=== PATIENT | male | born 1935 | race Caucasian/White ===

== ENCOUNTER 2016-06-07 11:12 | Emergency (ER) | payer MEDICARE ==
[2016-06-07 12:26] LABS: ALBUMIN 4.3 g/dL (3.5-5.0); ALKALINE PHOSPHATASE 91 U/L (38-126); ALT 25 U/L (21-72); AST 33 U/L (17-59); BILIRUBIN, DIRECT 0.5 mg/dL (0.0-0.4); BILIRUBIN, TOTAL 0.9 mg/dL (0.2-1.3); BLOOD UREA NITROGEN 73 mg/dL (9-20); CALCIUM 9.4 mg/dL (8.4-10.2); CHLORIDE 100 mmol/L (98-107); LIPASE 167 U/L (23-300); POTASSIUM 4.5 mmol/L (3.5-5.1); SODIUM 139 mmol/L (137-145); TOTAL PROTEIN 8.9 g/dL (6.3-8.2)
[2016-06-07 12:27] LABS: BASOPHILS 0.2 % (0.0-2.0); EOSINOPHILS 0.1 % (0.0-6.0); HEMATOCRIT 42.3 % (42.0-54.0); HEMOGLOBIN 13.8 g/dL (14.0-18.0); LYMPHOCYTES 18.3 % (20.0-40.0); LYMPHOCYTES# 2.1 X 10^3uL (0.8-3.8); MEAN CELL VOLUME 87.6 fL (80.0-100.0); MEAN CORPUS. HGB CONCENTRATION 32.5 g/dL (32.0-36.0); MEAN CORPUSCULAR HEMOGLOBIN 28.5 pg (29.0-35.0); MEAN PLATELET VOLUME 8.6 fL (7.4-10.4); MONOCYTES 4.7 % (2.0-10.0); MONOCYTES# 0.5 X 10^3uL (0.2-1.0); NEUTROPHILS 76.7 % (54.0-75.0); NEUTROPHILS# 8.7 X 10^3uL (2.6-6.7); PLATELET COUNT 386 X 10^3uL (130-440); RED BLOOD COUNT 4.83 X 10^6uL (4.20-6.10); WHITE BLOOD COUNT 11.3 X 10^3uL (3.9-10.7)
[2016-06-07 12:30] LABS: RED CELL DISTRIBUTION WIDTH 16.4 % (11.5-14.5)
[2016-06-07 12:32] LABS: GLUCOSE 207 mg/dL (70-100)
[2016-06-07 12:35] LABS: CREATININE 8.2 mg/dL (0.7-1.3)
[2016-06-07] MEDS ORDERED: ONDANSETRON HCL 4 MG/2 ML VIAL ONE (12:37)
[2016-06-07] MEDS ORDERED: NORMAL SALINE IV SCH ×2 (13:00→13:10)
[2016-06-07] MEDS ORDERED: PANTOPRAZOLE IV SCH ×2 (13:00→13:10)
[2016-06-07] MEDS ORDERED: CEFTRIAXONE SODIUM 1,000 MG/10 ML VIAL ONE (13:18)
[2016-06-07] MEDS ORDERED: NORMAL SALINE MINI-BAG+ 100 ML IV ONE (13:19)
--- NOTE | 2016-06-07 14:09 | RADIOLOGY REPORT ---
A limited single portable view of the chest is compared with a prior film dated 05/20/2013. The heart, vessels and lungs are stable and unremarkable. No infiltrate, fluid or pneumothorax is seen. IMPRESSION: Unremarkable limited inspiration single portable view of the chest. MTDD
--- NOTE | 2016-06-07 15:12 | ER NURSING DOCUMENTATION ---
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 tg Transition of care: patient was not received from another setting of care. 11:23 Acuity: JAYDEN 2 tg 11:23 Method Of Arrival: Private Vehicle tg Triage Assessment: 11:00 General: Appears slender, unkempt, Behavior is cooperative, flat, quiet, Smells of tg urine, vomit. Pain: Denies pain. Neuro: Level of Consciousness is awake, alert, Gait is unsteady. Cardiovascular: Capillary refill < 3 seconds. Cardiovascular: Rhythm is sinus rhythm. Respiratory: Respiratory effort is even, unlabored. GI: Reports vomiting, Denies nausea, pain. : Lopez bag has some very dark, thick urine. Pt's grand-daughter reports that urine was "normal" yesterday evening. Derm: Skin is dry, Skin is pale, Skin temperature is warm. Historical: - Allergies: No known drug Allergies; - Home Meds: 1. 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 - Ebola Screening: : Patient negative for fever greater than or equal to 101.5 degrees Fahrenheit, and additional compatible Ebola Virus Disease symptoms. Patient denies exposure to infectious person. Patient denies travel to an Ebola-affected area in the 21 days before illness onset. No symptoms or risks identified at this time. . - Immunization history: Unable to Obtain. - Social history: Smoking status: Patient states was never smoker of tobacco. - History obtained from: granddaughter. Screenin:57 Infectious Disease Risk Unable to Obtain. Abuse screen: Unable to Obtain. Nutritional tg screening: No deficits noted. Assessment: 12:53 Reassessment: Pt placed in trendelenburg position by Dr. Lopez. tg 12:56 Pain: Denies pain. GI: Abdomen is distended, Denies nausea. : suprapubic catheter in tg place to gravity drainage. 13:42 Reassessment: Family has left for now. Both side rails up, call light in reach. Pt's tg door open and visible from nurses. station. . 14:27 Reassessment: Transfer delay due to ambulance shortage. Expect transport ambulance to arrive at [facility] 1530.. Vital Signs: 11:24 BP 92 / 64; Pulse 105; Pulse Ox 92% on R/A; tg 12:54 BP 94 / 51; Pulse 80; Resp 18; Temp 98.2(TE); Pulse Ox 97% on 2 lpm NC; Weight 58.97 kg tg (R); Height 5 ft. 6 in. (167.64 cm) (R); Pain 0/10; 13:50 BP 102 / 60; Pulse 83; Resp 19; Pulse Ox 94% on 2 lpm NC; tg 15:01 BP 100 / 60; Pulse 74; Resp 16; Pulse Ox 96% on 2 lpm NC; tg 12:54 Body Mass Index 20.98 (58.97 kg, 167.64 cm) tg Orange Coma Score: 13:11 Eye Response: spontaneous(4). Verbal Response: confused(4). Motor Response: obeys cd commands(6). Total: 14. ED Course: 11:13 Patient arrived in ED. ds 11:13 Barrie Sandoval MD is Private Physician. ds 11:23 Elan Baird, RN is Primary Nurse. tg 11:24 Triage completed. tg 11:30 Inserted peripheral IV: 20 gauge in left forearm. Inserted peripheral IV: 18 gauge in tg right forearm. Oxygen Oxygen administration via nasal cannula @ 2L/min. 11:46 Evin Lopez MD is Attending Physician. cd 12:41 EKG done. (by ED staff). Reviewed by vEin Lopez MD. tg 12:51 Port Xray Completed. ms 12:53 Valuables Remains with patient Placed in gown. Bed in low position. Call light in tg reach. Side rails up X 1. Adult w/ patient. groundwater monitoring technician on. Pulse ox on. Diet: Patient is NPO. 13:43 Verbal reassurance given. Warm blanket given. Pillow given. Vomit cleaned from mustach tg and ivan from his vomiting episode [employer]. 13:45 suprapubic catheter flushed with sterile technique. Thick sludge in az line, but tg flushes well. No urinary output yet. Leg bag and tubing replaced. 14:28 Repositioned patient. Linen changed. Pt's justin-area cleaned with mild soap. Moisturizer tg applied. Pt's skin is very dry/flaky all over. Administered Medications: 11:47 CANCELLED (Physician Discretion): NS 0.9% 2000 ml IV at bolus once cd 12:14 Drug: NS 0.9% 500 ml; Route: IV; Rate: bolus; Site: left forearm; Delivery: Pump; tg 12:51 Follow up: IV Status: Completed infusion; IV Intake: 500ml tg 12:39 Drug: Zofran 4 mg; Route: IVP; Infused Over: 2 mins; Site: left forearm; tg 13:49 Follow up: Response: No adverse reaction tg 12:51 Drug: NS 0.9% 1000 ml; Route: IV; Rate: 150 ml/hr; Site: left forearm; Delivery: Pump; tg 15:10 Follow up: IV Status: Infusing continued upon transfer; IV Intake: 300ml tg 12:52 Drug: Protonix 80 mg; Route: IVPB; Site: left forearm; Delivery: Pump; tg 13:22 Follow up: IV Status: Completed infusion; IV Intake: 100ml tg 13:10 Drug: NS 0.9% 100 ml, Rocephin 1 grams; Route: IVPB; Rate: 200 ml/hr; Site: right tg forearm; Delivery: Pump; 13:49 Follow up: IV Status: Completed infusion; IV Intake: 100ml tg 13:23 Drug: NS 0.9% 500 ml; Route: IV; Rate: bolus; Site: right forearm; tg 13:49 Follow up: IV Status: Completed infusion; IV Intake: 500ml tg 13:49 Drug: Protonix 8 mg/hr; Route: IV; Rate: calculated rate; Site: right forearm; tg Delivery: Pump; 14:50 Follow up: IV Status: Infusing continued upon transfer; IV Intake: 20ml tg Intake: 12:51 IV: 500ml; Total: 500ml. tg 13:22 IV: 100ml; Total: 600ml. tg 13:49 IV: 500ml; Total: 1100ml. tg 13:49 IV: 100ml; Total: 1200ml. tg 14:50 IV: 20ml; Total: 1220ml. tg 15:10 IV: 300ml; Total: 1520ml. tg Outcome: 13:27 ER care complete, transfer ordered by . li 15:01 Transferred: Patient will be transferred to: [facility]. Facility tg Acceptance Time: June 07, 2016 at 13:00 Patient's face sheet was faxed to accepting facility. Face Sheet included patient's name, address, age, gender, contact information and insurance information. Patient will be transported by: [facility] ground. Nurse and Physician Charting and Notes were sent to Accepting Facility. All tests and/or procedures with results, if applicable, were sent to accepting facility. 15:01 Condition: improved 15:01 Discharge Assessment: Patient awake and alert. 15:01 Discharge instructions given to patient, family, Instructed on need for transfer 15:10 Transferred: Report called to: EDELMIRA Rhodes tg 15:11 Patient left the ED. tg Signatures: Elan Baird RN RN tg Srot, Jenniffer, Reg Reg Evin Melendez MD MD cd Strickland, Mary ms
--- NOTE | 2016-06-07 15:12 | ER PHYSICIAN DOCUMENTATION ---
Physician Documentation [facility] Name:Abhishek Jimenez Age:80 yrs Sex:Male :1935 Arrival Date:06/07/2016 Time:11:12 Bed3 Private MD:Barrie Sandoval ED, Chris Disposition: 06/07/16 13:27 Transfer ordered to [facility]. Diagnosis are Acute Renal/Kidney Failure, Nontraumatic, Dehydration - : severe, Urosepsis - : Rule out, Metabolic Acidosis, Do Not Resuscitate Status. - Reason for transfer: Higher level of care. - Accepting physician is Dr. Agustin Conti, [facility] Hospitalist. - Condition is Serious. - Problem is new. - Symptoms have improved. COBRA Form completed? Yes Transfer - Mode of Transportation Ambulance HPI: 06/07 11:20 This 80 yrs old Male presents to ER via Private Vehicle with complaints of cd Vomiting. 11:20 The patient presents to the emergency department with nausea, that is moderate, with cd vomiting, 1 times today, described as undigested food, and a small amount of dark blood, without any complaints of abdominal pain. Onset: The symptom(s)/episode began/occurred yesterday. Possible causes: unknown, Patient has had altered mental status, awake and alert but more disoriented over the past few days. The symptoms are aggravated by nothing. The symptoms are alleviated by nothing. Associated signs and symptoms: Pertinent positives: anorexia, GI bleeding, nausea, vomiting, foul smelling urine from his suprapubic catheter (which is changed every 4 weeks; His last catheter change was 3 weeks ago; The cath bag has foul, cloudy urine with clumps.) The family denies high fever or chills. He has been drinking fluids, but eating poorly over the past few days.. Severity of symptoms: At their worst the symptoms were moderate in the emergency department the symptoms are unchanged. The patient has experienced a previous episode, approximately 4 months ago, when he had Urosepsis and Renal Failure. Family members state he is a DNR patient.. Historical: - Allergies: No known drug Allergies; - Home Meds: 1. 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 - Ebola Screening: : Patient negative for fever greater than or equal to 101.5 degrees Fahrenheit, and additional compatible Ebola Virus Disease symptoms. Patient denies exposure to infectious person. Patient denies travel to an Ebola-affected area in the 21 days before illness onset. No symptoms or risks identified at this time. . - Immunization history: Unable to Obtain. - Social history: Smoking status: Patient states was never smoker of tobacco. - History obtained from: granddaughter. ROS: 13:11 ENT: Negative for injury, pain, epistaxis and discharge. cd Neck: Negative for injury, pain, stiffness and swelling. Cardiovascular: Negative for chest pain, palpitations, edema and pleuritic pain. Respiratory: Negative for shortness of breath, dyspnea on exertion, cough, sputum production, wheezing, hemoptysis and pleuritic chest pain. Back: Negative for injury, pain or muscle spasms. MS/Extremity: Negative for injury, deformity, edema, calf tenderness, pain or coldness. 13:11 Skin: Negative for injury, rash, itching and discoloration. cd 13:11 Constitutional: Positive for malaise, poor PO intake, Negative for chills, fever. 13:11 Abdomen/GI: Positive for nausea, vomiting, anorexia, hematemesis, Negative for abdominal pain, diarrhea, abdominal distension, black/tarry stool, rectal bleeding, bowel incontinence. 13:11 Neuro: Positive for altered mental status, weakness, Negative for loss of consciousness, syncope. 13:11 All other systems are negative. Exam: Head/Face: Normocephalic, atraumatic. Eyes: Pupils equal round and reactive to light, extra-ocular motions intact. Lids and lashes normal. Conjunctiva and sclera are non-icteric and not injected. Cornea within normal limits. Periorbital areas with no swelling, redness, or edema. 13:11 ENT: Nares patent. No nasal discharge, no septal abnormalities noted. Tympanic cd membranes are normal and external auditory canals are clear. Oropharynx with no redness, swelling, or masses, exudates, or evidence of obstruction, uvula midline. Mucous membranes dry Back: No spinal tenderness. No costovertebral tenderness. Full range of motion. Skin: Warm, dry with normal turgor. Normal color with no rashes, no lesions, and no evidence of cellulitis. 13:11 MS/ Extremity: Pulses equal, no cyanosis. Neurovascular intact. Full, normal range of motion. 13:11 Constitutional: The patient appears alert, awake, non-diaphoretic, non-toxic, well developed, emaciated, listless, smells of urine, confused 13:11 Cardiovascular: Rate: normal, Rhythm: regular, Pulses: no pulse deficits are appreciated, Heart sounds: normal. 13:11 Respiratory: the patient does not display signs of respiratory distress, Respirations: normal, no acute changes, Breath sounds: are normal, clear throughout. 13:11 Abdomen/GI: Inspection: abdomen appears normal, except suprapubic catheter, Bowel sounds: diminished, Palpation: abdomen is soft and non-tender, in all quadrants, rebound tenderness, is not appreciated, voluntary guarding, is not appreciated, involuntary guarding, is not appreciated, no appreciated organomegaly, Rectal exam: rectal tone normal, Stool: brown, guaiac negative. 13:11 Skin: Appearance: Color: cody, Moisture: dry, diaphoresis is not appreciated. Vital Signs: 11:24 BP 92 / 64; Pulse 105; Pulse Ox 92% on R/A; tg 12:54 BP 94 / 51; Pulse 80; Resp 18; Temp 98.2(TE); Pulse Ox 97% on 2 lpm NC; Weight 58.97 kg tg (R); Height 5 ft. 6 in. (167.64 cm) (R); Pain 0/10; 13:50 BP 102 / 60; Pulse 83; Resp 19; Pulse Ox 94% on 2 lpm NC; tg 15:01 BP 100 / 60; Pulse 74; Resp 16; Pulse Ox 96% on 2 lpm NC; tg 12:54 Body Mass Index 20.98 (58.97 kg, 167.64 cm) tg Pieter Coma Score: 13:11 Eye Response: spontaneous(4). Verbal Response: confused(4). Motor Response: obeys cd commands(6). Total: 14. MDM: 11:20 Data interpreted: Pulse oximetry: on room air is 97 %. Interpretation: normal. cd 11:46 Patient medically screened. cd 12:42 Response to treatment: the patient's symptoms have mildly improved after treatment, and cd as a result, I will transfer the patient. 12:45 Data reviewed: vital signs, nurses notes, old medical records, lab test result(s), EKG, cd and as a result, I will *Transfer Patient initiate a consult, from a [facility] Hospitalist, Dr. Agustin Conti, administer antibiotics Rocephin, to cover for possible Urosepsis, administer IV fluids, NS bolus, NS maintenence, Protonix and Protonix Drip to cover for possible UGI Bleed.. 12:50 Differential diagnosis: gastritis, PUD, Dehydration, Renal Failure, Urosepsis, cd Metabolic Acidosis, Obstructed Suprapubic Catheter. 12:52 Physician consultation: Agustin Conti MD was called at 12:46, was contacted at 12:50, cd regarding admission, to the floor, consult, patient's condition, need to evaluate the patient as soon as possible, and will see patient in inpatient room, shortly, later today, after a discussion of the case, a recommendation for transfer for higher level of care is made. 13:21 Counseling: I had a detailed discussion with the patient and/or guardian regarding: the cd historical points, exam findings, and any diagnostic results supporting the discharge/admit diagnosis, lab results, radiology results, the need to transfer to another facility, for higher level of care. ECG:. 06/07 12:31 Order name: CBC AUTO DIF, MDIF/RMOR IF IND; Complete Time: 12:38 EDMS 06/07 12:32 Interpretation: Normal Except: WHITE BLOOD COUNT 11.3; NEUTROPHILS 76.7; Elevated WBC cd with Left shift. 06/07 12:36 Order name: BASIC METABOLIC PANEL; Complete Time: 12:38 EDMS 06/07 12:38 Interpretation: CARBON DIOXIDE 13; GLUCOSE 207; BLOOD UREA NITROGEN 73; CREATININE 8.2; cd Metabolic Acidosis, Renal Failure, Hyperglycemia. 06/07 12:36 Order name: HEPATIC PANEL; Complete Time: 12:38 EDMS 06/07 12:38 Interpretation: Normal. 06/07 12:36 Order name: LIPASE; Complete Time: 12:38 EDMS 06/07 12:38 Interpretation: Normal. 06/07 12:46 Order name: LACTATE; Complete Time: 13:16 EDMS 06/07 13:15 Interpretation: Abnormal: LACTATE 6.2; Elevated. 06/07 14:13 Order name: CHEST; SINGLE VIEW [id number]; Complete Time: 15:19 EDMS 06/07 11:40 Order name: I & O; Complete Time: 13:45 tg 06/07 11:40 Order name: IV large bore X 2; Complete Time: 12:14 tg 06/07 11:40 Order name: NPO; Complete Time: 12:14 tg 06/07 11:40 Order name: Oxygen; Complete Time: 12:14 tg 06/07 11:40 Order name: Place Patient On Monitor; Complete Time: 12:14 tg 06/07 11:40 Order name: Pulse Ox Continuous; Complete Time: 12:14 tg EC:42 Rate is 83 beats/min. Rhythm is regular. QRS [place] is Normal. CT interval is normal. QRS cd interval is normal. QT interval is normal. No Q waves. T waves are Normal. No ST changes noted. Clinical impression: Normal ECG and No evidence of ischemia. Interpreted by me. Dispensed Medications: 11:47 CANCELLED (Physician Discretion): NS 0.9% 2000 ml IV at bolus once cd 12:14 Drug: NS 0.9% 500 ml; Route: IV; Rate: bolus; Site: left forearm; Delivery: Pump; tg 12:51 Follow up: IV Status: Completed infusion; IV Intake: 500ml tg 12:39 Drug: Zofran 4 mg; Route: IVP; Infused Over: 2 mins; Site: left forearm; tg 13:49 Follow up: Response: No adverse reaction tg 12:51 Drug: NS 0.9% 1000 ml; Route: IV; Rate: 150 ml/hr; Site: left forearm; Delivery: Pump; tg 15:10 Follow up: IV Status: Infusing continued upon transfer; IV Intake: 300ml tg 12:52 Drug: Protonix 80 mg; Route: IVPB; Site: left forearm; Delivery: Pump; tg 13:22 Follow up: IV Status: Completed infusion; IV Intake: 100ml tg 13:10 Drug: NS 0.9% 100 ml, Rocephin 1 grams; Route: IVPB; Rate: 200 ml/hr; Site: right tg forearm; Delivery: Pump; 13:49 Follow up: IV Status: Completed infusion; IV Intake: 100ml tg 13:23 Drug: NS 0.9% 500 ml; Route: IV; Rate: bolus; Site: right forearm; tg 13:49 Follow up: IV Status: Completed infusion; IV Intake: 500ml tg 13:49 Drug: Protonix 8 mg/hr; Route: IV; Rate: calculated rate; Site: right forearm; tg Delivery: Pump; 14:50 Follow up: IV Status: Infusing continued upon transfer; IV Intake: 20ml tg Signatures: Elan Baird RN RN tg Evin Lopez MD MD cd
[2016-06-07 15:36] LABS: URINE MUCUS NONE SEEN (Up to 25%); URINE SQUAMOUS EPITHELIAL CELL NONE SEEN (<= 15/hpf)
[2016-06-07 15:55] LABS: URINE APPEARANCE TURBID; URINE COLOR BROWN; URINE SPECIFIC GRAVITY > OR = 1.030 (0.001-1.035)
[2016-06-07 15:56] LABS: URINE BILIRUBIN 1.0 mg/100ml (2+) (NEGATIVE); URINE BLOOD 250 Ery/uL (3+) (NEGATIVE); URINE GLUCOSE 100mg/dL (NEGATIVE); URINE KETONE 5mg/dL (NEGATIVE); URINE LEUKOCYTE ESTERASE 500 WBC/uL (3+) (NEGATIVE); URINE NITRITE NEGATIVE (NEGATIVE); URINE PROTEIN 300mg/dL (3+) (NEG - TRACE); URINE RBC 50-100/hpf (0-5/hpf); URINE UROBILINOGEN 1mg/dL (Normal) (NEG-1mg/dL)
== END 2016-06-07 15:12 | disposition short-term general hospital (02) ==
LOC: ER 11:12
DX: N17.9 Acute kidney failure, unspecified (principal); E86.0 Dehydration; N39.0 Urinary tract infection, site not specified; B96.20 Unspecified Escherichia coli [E. coli] as the cause of diseases classified elsewhere; T83.511A Infection and inflammatory reaction due to indwelling urethral catheter, initial encounter; E87.2 Acidosis; Z66 Do not resuscitate; K92.0 Hematemesis; R41.82 Altered mental status, unspecified; R53.81 Other malaise; R53.1 Weakness; R11.0 Nausea; R73.9 Hyperglycemia, unspecified; Z99.89 Dependence on other enabling machines and devices; Z74.3 Need for continuous supervision; Z79.899 Other long term (current) drug therapy; Z46.6 Encounter for fitting and adjustment of urinary device
CPT/HCPCS: 71010; 80048; 80076; 81001; 83605; 83690; 85025; 87040; 87077; 87086; 87186; 93005; 93010; 96365; 96366; 96375; 99285; A0425; A0427; J0696; J2405

== ENCOUNTER 2016-07-14 11:43 | Inpatient (IN) | payer MEDICARE ==
--- NOTE | 2016-07-14 12:15 | RADIOLOGY REPORT ---
HISTORY: Syncope. Blackout. COMPARISON: June 07, 2016 FINDINGS: 1 view of the chest obtained. Lungs are hypoventilated. There is no new confluent infiltrate or cons olidation. There is no pleural effusion. There is no pneumothorax. Cardiomediastinal silhouette is stable in configuration. There is mild atherosclerotic ectasia of the thoracic aorta. Pulmonary vas cularity is stable. Trachea is midline. There is no new interstitial or airways thickening. IMPRESSION: Stable exam compared to 06/07/2016 with no acute infiltrate. Final Electronic Signature: This report was electronically signed by Mehran Ferrara MD on 07/14/2016 12: 13 PM. [facility] /
[2016-07-14 12:48] LABS: BASOPHIL# 0.1 X 10^3uL (0.0-0.1); BASOPHILS 1.4 % (0.0-2.0); EOSINOPHILS 2.2 % (0.0-6.0); EOSINOPHILS# 0.2 X 10^3uL (0.0-0.4); HEMATOCRIT 44.6 % (42.0-54.0); HEMOGLOBIN 14.4 g/dL (14.0-18.0); LYMPHOCYTES 19.8 % (20.0-40.0); LYMPHOCYTES# 1.8 X 10^3uL (0.8-3.8); MEAN CELL VOLUME 89.5 fL (80.0-100.0); MEAN CORPUS. HGB CONCENTRATION 32.4 g/dL (32.0-36.0); MEAN PLATELET VOLUME 7.7 fL (7.4-10.4); MONOCYTES 6.5 % (2.0-10.0); MONOCYTES# 0.6 X 10^3uL (0.2-1.0); NEUTROPHILS 70.1 % (54.0-75.0); NEUTROPHILS# 6.3 X 10^3uL (2.6-6.7); PLATELET COUNT 203 X 10^3uL (130-440); RED BLOOD COUNT 4.98 X 10^6uL (4.20-6.10); RED CELL DISTRIBUTION WIDTH 17.4 % (11.5-14.5)
[2016-07-14 13:05] LABS: BLOOD UREA NITROGEN 28 mg/dL (9-20); CALCIUM 8.9 mg/dL (8.4-10.2); CHLORIDE 102 mmol/L (98-107); CREATININE 1.5 mg/dL (0.7-1.3); GLUCOSE 110 mg/dL (70-100); MAGNESIUM 2.2 mg/dL (1.6-2.3); POTASSIUM 4.3 mmol/L (3.5-5.1); SODIUM 137 mmol/L (137-145)
[2016-07-14 13:06] LABS: URINE MUCUS NONE SEEN (Up to 25%)
[2016-07-14 13:18] LABS: TROPONIN I < 0.012 ng/mL (0.00-0.034)
[2016-07-14 14:04] LABS: URINE APPEARANCE CLOUDY; URINE COLOR YELLOW; URINE GLUCOSE NORMAL (NEGATIVE); URINE KETONE 5mg/dL (NEGATIVE); URINE LEUKOCYTE ESTERASE 500 WBC/uL (3+) (NEGATIVE); URINE NITRITE NEGATIVE (NEGATIVE); URINE PROTEIN 300mg/dL (3+) (NEG - TRACE); URINE SPECIFIC GRAVITY 1.025 (0.001-1.035)
[2016-07-14 14:05] LABS: URINE BACTERIA >50 ORGANISMS/hpf (<10/hpf); URINE BILIRUBIN 0.5 mg/100ml (1+) (NEGATIVE); URINE BLOOD 250 Ery/uL (3+) (NEGATIVE); URINE UROBILINOGEN 1mg/dL (Normal) (NEG-1mg/dL)
[2016-07-14] MEDS ORDERED: HOME MEDICATION LIST NEEDED 1 EA EACH MC ONE (14:36)
[2016-07-14] MEDS ORDERED: ACETAMINOPHEN 325 MG TABLET PO PRN (14:36)
[2016-07-14] MEDS ORDERED: cefTRIAXone SODIUM 1,000 MG/10 ML VIAL ONE (14:37)
[2016-07-14] MEDS ORDERED: NORMAL SALINE 100 ML IV ONE (14:37)
--- NOTE | 2016-07-14 15:07 | ER PHYSICIAN DOCUMENTATION ---
Physician Documentation [facility] Name:Abhishek Jimenez Age:80 yrs Sex:Male :1935 Arrival Date:07/14/2016 Time:11:43 Bed4 Private MD:Barrie Sandoval ED, John Disposition: 07/14/16 14:25 Admit ordered for Barrie Sandoval. Preliminary diagnosis are Dehydration, Syncope, UTI (Cystitis). - Bed requested for Medical/Surgical. - Condition is Fair. - Problem is new. - Symptoms are unchanged. 23 HR OBS Yes HPI: 07/14 13:26 This 80 yrs old Male presents to ER via EMS with complaints of Syncope. brigitte 13:26 Details of fall: The patient fell from an upright position. Onset: The jm symptom(s)/episode began/occurred just prior to arrival. Associated injuries: The patient sustained no obvious injury. The patient has experienced syncope, collapsed. 13:27 Duration: The patient has had multiple episodes, that last 10 second(s). Context: jm occurred while the patient was defecating, right after. Associated injury: The patient did not suffer any apparent associated injury. Associated signs and symptoms: Pertinent positives: weakness. Current symptoms: Currently, the patient is not experiencing any symptoms. The patient has not experienced similar symptoms in the past. The patient has not recently seen a physician. Pt just had a bath and was on the toilet having a BM. He stood up and had a syncopal episode and then another. . Historical: - Allergies: No known drug Allergies; - Home Meds: 1. Allopurinol Oral 2. Protonix Oral 3. 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 - Ebola Screening: : Patient denies exposure to infectious person. Patient denies travel to an Ebola-affected area in the 21 days before illness onset. . - Social history: Smoking status: unknown if patient ever smoked tobacco. Patient/guardian denies using alcohol. ROS: 13:30 Constitutional: Positive for fatigue, malaise, Negative for fever. jm 13:30 ENT: Negative for rhinorrhea, sinus congestion, sinus pain, sore throat. 13:30 Cardiovascular: Negative for chest pain, palpitations. 13:30 Respiratory: Positive for cough, Negative for shortness of breath. 13:30 Abdomen/GI: Negative for abdominal pain, nausea, vomiting. 13:30 Abdomen/GI: Positive for diarrhea. 13:30 : 13:30 MS/extremity: Negative for swelling, tenderness. 13:30 Skin: Negative for rash, swelling. 13:30 Neuro: Positive for syncope, weakness. Exam: 13:31 Abdomen/GI: Bowel sounds: normal, Palpation: abdomen is soft and non-tender. jm 13:31 Constitutional: The patient appears alert, awake, frail. 13:31 Eyes: Periorbital structures: appear normal, Conjunctiva: normal. 13:31 ENT: Mouth: Oral mucosa: dry, Posterior pharynx: is normal. 13:31 Neck: Thyroid: appears normal, Trachea: is midline with no obvious abnormalities. 13:31 Cardiovascular: Rate: tachycardic, Rhythm: regular. 13:31 Respiratory: Respirations: normal, Breath sounds: are normal. 13:31 Abdomen/GI: Bowel sounds: normal, Palpation: abdomen is soft and non-tender. 13:31 Musculoskeletal/extremity: DVT Exam: No signs of deep vein thrombosis. Calves: are non-tender, have equal circumference. 13:31 Skin: Appearance: Color: pink, Turgor: is poor. 13:31 Neuro: Mentation: is normal, Memory: is normal. 13:31 Psych: Behavior/mood is pleasant, Affect is calm. Vital Signs: 11:38 BP 111 / 85 (auto/); st 11:42 Pulse 103 MON; Resp 23; Pulse Ox 91% ; st 12:02 Pulse 96 MON; Resp 19; Pulse Ox 89% ; st 12:36 Pulse Ox 92% on 3 lpm NC; st 12:52 Pulse 86 MON; Resp 15; Pulse Ox 88% ; st 12:55 BP 93 / 63 (auto/); st 13:00 BP 100 / 66 (auto/); st 13:02 Pulse 86 MON; Resp 19; Pulse Ox 91% ; st 13:30 BP 127 / 86 (auto/); st 13:32 Pulse 80 MON; Resp 18; Pulse Ox 96% ; st 14:00 BP 115 / 77 (auto/); st 14:02 Pulse 76 MON; Resp 18; Pulse Ox 92% ; st 14:30 BP 109 / 71 (auto/); st 14:32 Pulse 77 MON; Resp 14; Pulse Ox 93% on 3 lpm NC; Pain 0/10; st MDM: 11:45 Patient medically screened. 14:22 Differential Diagnosis: cardiac arrhythmia, idiopathic syncope, sepsis, dehydration. Data reviewed: vital signs, nurses notes, old medical records, lab test result(s), EKG, radiologic studies, and as a result, I will admit patient. Test interpretation: by ED physician or midlevel provider: plain radiologic studies, ECG. Counseling: I had a detailed discussion with the patient and/or guardian regarding: the historical points, exam findings, and any diagnostic results supporting the discharge/admit diagnosis, lab results, radiology results, the need for further work-up and treatment in the hospital. ECG:. Physician consultation: Barrie Sandoval MD regarding admission, and will see patient shortly, later today. Admission orders: after a detailed discussion of the patient's condition and case, the admit orders are written by me. ED course: Pt w obvious UTI, w renal insufficiency 2/2 dehydration, and syncope. Pt will be placed on abx and admitted w tele. Dr. Sandoval will see shortly. . 07/14 13:03 Order name: CBC AUTO DIF, MDIF/RMOR IF IND; Complete Time: 13:26 [facility] 07/14 13:18 Order name: BASIC METABOLIC PANEL; Complete Time: 13:26 [facility] 07/14 13:18 Order name: MAGNESIUM; Complete Time: 13:26 [facility] 07/14 13:18 Order name: TROPONIN I; Complete Time: 13:26 [facility] 07/14 14:06 Order name: UA W/ MICRO -CULTURE IF IND; Complete Time: 14:19 [facility] 07/14 12:17 Order name: CHEST; SINGLE [place]IEW [address]111; Complete Time: 12:35 [facility] 07/14 11:48 Order name: Call For Old Ekg; Complete Time: : 07/14 11:48 Order name: 12-lead EKG; Complete Time: : 07/14 11:48 Order name: Continuous Cardiac Monitoring; Complete Time: :59 07/14 11:48 Order name: I & O; Complete Time: : 07/14 11:48 Order name: NPO; Complete Time: 07/14 11:48 Order name: Oxygen; Complete Time: 07/14 11:48 Order name: Pulse Ox Continuous; Complete Time: EC:22 Rate is 101 beats/min. QRS [place] is Normal. [place] interval is normal. QT interval is jm normal. No Q waves. T waves are Normal. No ST changes noted. Dispensed Medications: Drug: NS 0.9% 1000 ml; Route: IV; Rate: bolus; Site: right hand; st 15:06 Follow up: IV Status: Completed infusion; IV Intake: 1000ml st 14:30 Drug: Rocephin 1 grams; Route: IVPB; Site: right hand; st 15:05 Follow up: IV Status: Completed infusion; IV Intake: 110ml st Signatures: Thu Wright RN RN st Meyer, John, MD MD jm
--- NOTE | 2016-07-14 15:07 | ER NURSING DOCUMENTATION ---
Nurse's Notes [facility] Name:Abhishek Jimenez Age:80 yrs Sex:Male :1935 Arrival Date:07/14/2016 Time:11:43 Bed4 Private MD:Barrie Sandoval Diagnosis:Dehydration;Syncope;UTI (Cystitis) Presentation: 07/14 11:44 Presenting complaint: EMS states: EMS states that pt was being helped with bathing and st toileting by a QUART[employer] ORIENTATOR and had two fainting spells. When EMS arrived pt was staring into space but shortly came around to what family stated was baseline for him. Transition of care: Home. Care prior to arrival: IV initiated. gauge and site 20 G right hand. 11:44 Method Of Arrival: EMS: 410 st 11:48 Acuity: JAYDEN 3 st Triage Assessment: 11:44 General: Appears in no apparent distress, Behavior is cooperative. Pain: Denies pain. st EENT: Oral mucosa is dry. Neuro: Level of Consciousness is awake, alert, Oriented to person, place, Gum Worker are equal bilaterally Reports pt reports remembering most of the morning events but not all of them. . Cardiovascular: Capillary refill < 3 seconds Heart tones present Rhythm is sinus rhythm. Respiratory: Airway is patent Respiratory effort is even, unlabored, Respiratory pattern is regular, symmetrical, Reports cough that is productive. GI: No deficits noted. Derm: skin is very dry and peeling. Historical: - Allergies: No known drug Allergies; - Home Meds: 1. Allopurinol Oral 2. Protonix Oral 3. 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 - Ebola Screening: : Patient denies exposure to infectious person. Patient denies travel to an Ebola-affected area in the 21 days before illness onset. . - Social history: Smoking status: unknown if patient ever smoked tobacco. Patient/guardian denies using alcohol. Screenin:07 Infectious Disease Risk None. st 13:28 Abuse screen: Denies injuries from another. Nutritional screening: pt is thin.. st Vital Signs: 11:38 BP 111 / 85 (auto/); st 11:42 Pulse 103 MON; Resp 23; Pulse Ox 91% ; st 12:02 Pulse 96 MON; Resp 19; Pulse Ox 89% ; st 12:36 Pulse Ox 92% on 3 lpm NC; st 12:52 Pulse 86 MON; Resp 15; Pulse Ox 88% ; st 12:55 BP 93 / 63 (auto/); st 13:00 BP 100 / 66 (auto/); st 13:02 Pulse 86 MON; Resp 19; Pulse Ox 91% ; st 13:30 BP 127 / 86 (auto/); st 13:32 Pulse 80 MON; Resp 18; Pulse Ox 96% ; st 14:00 BP 115 / 77 (auto/); st 14:02 Pulse 76 MON; Resp 18; Pulse Ox 92% ; st 14:30 BP 109 / 71 (auto/); st 14:32 Pulse 77 MON; Resp 14; Pulse Ox 93% on 3 lpm NC; Pain 0/10; st ED Course: 11:44 Patient arrived in ED. lm3 11:44 Barrie Sandoval MD is Private Physician. lm3 11:44 Valuables Remains with patient Patient has correct armband on for positive st identification. Placed in gown. Bed in low position. Call light in reach. Side rails up X 1. 11:45 Herbert Felipe MD is Attending Physician. 11:48 Thu Wright, RN is Primary Nurse. st 11:[address] 11:58 Oxygen Oxygen administration via nasal cannula @ 3L/min. st 11:58 welding machine setter on. Pulse ox on. NIBP on. st 12:01 Port Xray Completed. fany 12:58 Urine collected. urin collected from tub of suprapubic catheter. tub is crusted with st gunc. 13:[address] 14:24 Barrie Sandoval MD is Admitting Physician. brigitte Administered Medications: 11:58 Drug: NS 0.9% 1000 ml; Route: IV; Rate: bolus; Site: right hand; st 15:06 Follow up: IV Status: Completed infusion; IV Intake: 1000ml st 14:30 Drug: Rocephin 1 grams; Route: IVPB; Site: right hand; st 15:05 Follow up: IV Status: Completed infusion; IV Intake: 110ml st Intake: 15:05 IV: 110ml; Total: 110ml. st 15:06 IV: 1000ml; Total: 1110ml. st Outcome: 14:25 Decision to Admit by Provider. brigitte 15:05 Admitted to Med/surg accompanied by nurse. st 15:05 Condition: stable 15:05 Report given to Carlyle HICKEY 15:05 Instructed on need to admit 15:06 Patient [address] the ED. st Signatures: Thu Wright, RN Herbert Dennison MD MD jm Abbott, Chloe Valdovinos, Shea martinez
[2016-07-14] MEDS: NORMAL SALINE 1,000 ML IV SCH (16:14)
[2016-07-14] MEDS: predniSONE 5 MG TABLET PO SCH (20:12)
[2016-07-15] MEDS: NORMAL SALINE 1,000 ML IV SCH ×3 (01:54→20:58)
[2016-07-15] MEDS: PANTOPRAZOLE 40 MG TABLET PO SCH (06:02)
[2016-07-15 06:26] LABS: BASOPHILS 0.6 % (0.0-2.0); EOSINOPHILS 1.7 % (0.0-6.0); EOSINOPHILS# 0.1 X 10^3uL (0.0-0.4); HEMATOCRIT 36.7 % (42.0-54.0); HEMOGLOBIN 12.2 g/dL (14.0-18.0); LYMPHOCYTES 32.2 % (20.0-40.0); LYMPHOCYTES# 1.2 X 10^3uL (0.8-3.8); MEAN CELL VOLUME 89.4 fL (80.0-100.0); MEAN CORPUS. HGB CONCENTRATION 33.2 g/dL (32.0-36.0); MEAN CORPUSCULAR HEMOGLOBIN 29.7 pg (29.0-35.0); MEAN PLATELET VOLUME 7.7 fL (7.4-10.4); MONOCYTES 8.4 % (2.0-10.0); MONOCYTES# 0.3 X 10^3uL (0.2-1.0); NEUTROPHILS 57.1 % (54.0-75.0); NEUTROPHILS# 2.2 X 10^3uL (2.6-6.7); PLATELET COUNT 173 X 10^3uL (130-440); RED BLOOD COUNT 4.11 X 10^6uL (4.20-6.10); RED CELL DISTRIBUTION WIDTH 17.4 % (11.5-14.5); WHITE BLOOD COUNT 3.8 X 10^3uL (3.9-10.7)
[2016-07-15 06:40] LABS: BLOOD UREA NITROGEN 18 mg/dL (9-20); CALCIUM 7.7 mg/dL (8.4-10.2); CHLORIDE 109 mmol/L (98-107); CREATININE 0.9 mg/dL (0.7-1.3); GLUCOSE 97 mg/dL (70-100); POTASSIUM 4.3 mmol/L (3.5-5.1); SODIUM 137 mmol/L (137-145)
--- NOTE | 2016-07-15 07:18 | HISTORY & PHYSICAL ---
DATE OF ADMISSION: 07/14/16 ATTENDING PHYSICIAN: Barrie Sandoval MD PRIMARY CARE PHYSICIAN: Barrie Sandoval MD CHIEF COMPLAINT: Diarrhea and syncope. HISTORY OF PRESENT ILLNESS: This 80-year-old gentleman was brought to the [facility] Emergency Department by ambulance after having 2 syncopal episodes at home while getting a shower from a nurses aide from Home Health Care. When she arrived, she evidently found the patient with feces on the lower half of his body, which was dried. She got him to the shower but after some showering, he became lightheaded and passed out. He did not fall and does not have any complaints of pain. He woke up, but there soon after passed out again. He had a couple diarrheal stools at sometime during the day. He denies any abdominal pain, fever, nausea, vomiting, shortness of breath, cough, sore throat or congestion. His room air pulse oximetry, however, had been in the mid to upper 80s here in the hospital. He gets into the mid 90s with 2 liters of oxygen. He denies any recent diarrhea until today and has not had any antibiotics in the last few weeks. On 06/07/16, he had an episode of acute renal failure related to a urinary tract infection. He has a chronic suprapubic catheter. He has had at least 1 other episode of acute renal failure associated initially with his benign prostatic hypertrophy with obstruction and since then with urinary tract infections. Patient has had some generalized weakness chronically, but this has significantly worsened lately. Today he is unable to stand, and he required a full 1-person to assist to shift simply from the bedside to a bedside chair. PAST MEDICAL HISTORY 1. Benign prostatic hypertrophy with obstruction, currently well treated with a suprapubic catheter. 2. Recurrent urinary tract infections related to the suprapubic catheter. 3. Occasional falls at home. 4. Complex home situation where he is cared for by his granddaughter and her , but they both have some chronic illness themselves. 5. Abdominal aortic aneurysm without rupture. Asymptomatic. 6. Iliac artery aneurysm on the left asymptomatic. 7. Mild chronic memory loss. 8. History of gout. 9. Polymyalgia rheumatica, recurrent. MEDICATIONS AT HOME Allopurinol 150 mg daily. Multivitamin 1 daily. Pantoprazole 40 mg before breakfast. Prednisone 5 mg daily. Acetaminophen extended release 650 mg up to t.i.d. PRN for pain. ALLERGIES: No known drug allergies. SOCIAL HISTORY: Patient lives in his own home with the help of a granddaughter and her . Their 2 kids live there as well and there are multiple social issues. Patient is a former smoker, having quit in 1999 and he does not drink alcohol currently. He has a distant history of some alcohol abuse. He wants a DNR status. REVIEW OF SYSTEMS GENERAL: No fever or chills, but has profound generalized weakness. RESPIRATORY: No coughing, sneezing, congestion or shortness of breath. CARDIOVASCULAR: No chest pain or palpitations. GI: Diarrhea without nausea, vomiting, or abdominal pain. : Has chronic urinary obstruction from benign prostatic hypertrophy, treated with suprapubic catheter. No pelvic pain. MUSCULOSKELETAL: Denies pain or aches. PHYSICAL EXAMINATION VITAL SIGNS: Temperature 37.0, blood pressure 132/87, pulse 78, respiratory rate 16 and O2 saturation was 93% on 3 liters and 84% on room air. GENERAL: He was alert and oriented to person and place. HEENT: Hair was disheveled but clean. Atraumatic. Oral mucosa was moist, but he has received over a liter of IV fluids already. LUNGS: Clear except for a rare expiratory wheeze. HEART: Regular rate and rhythm with no murmur. ABDOMEN: Soft, nontender. The suprapubic catheter had very creamy urine with sediment. EXTREMITIES: Without edema. 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 NEURO EXAM: Nonfocal. LABORATORY DATA: White count of 9,000 with 70% neutrophils and 20% lymphs. Hemoglobin was 14, hematocrit 44.6 and platelets were 203,000. Sodium was 137, potassium 4.3 and chloride 102. Creatinine was 1.5 and glucose was 110 nonfasting. His troponin was less than 0.012 and his magnesium was 2.2. His urine showed 3+ protein, 3+ blood, 3+ leukocyte esterase and greater than 50 organisms per high powered field. Culture is pending. IMAGING: His chest x-ray was unchanged from prior ones. IMPRESSION 1. Syncope x2 at home. Probably due to a combination of the issues below. 2. Acute diarrhea, etiology uncertain. 3. Moderate to severe dehydration with initial blood pressure in the 90s systolic. Better now after over a liter of IV fluid. 4. Urinary tract infection related to suprapubic catheter. 5. Chronic kidney disease, at risk for exacerbation because of the urinary tract infection. Recent acute renal failure. 6. Acute on chronic generalized weakness. Quite severe. 7. New hypoxia of uncertain etiology. No other respiratory symptoms. 8. Complex social situation with questionable safety at home. PLAN: Patient will continue to get gradual IV hydration. If his diarrhea continues this will need to be continued. The IV fluid will need to be continued as well. I have ordered a Clostridium difficile toxin and stool for blood and fecal leukocytes. Patient already has had IV Rocephin in the Emergency Room so elected not to do the stool culture. He will continue on the Rocephin IV daily until sensitivities are obtained for the urinary tract infection. I plan to have a suprapubic catheter and urinary bag changed tomorrow. He will continue on his usual medications. On Sunday morning, we will work with social work regarding placement. Evidently Adult Protective Services was called because of the unsanitary conditions found at home today. Patient may be a candidate for swing bed care next week to get stronger in order to go home safely. I will obtain a Physical Therapy consult tomorrow. Patient will continue with his Do Not Resuscitate status, which was established on previous office visits and admissions. KIMBERLY
[2016-07-15] MEDS: ALLOPURINOL 100 MG TAB PO SCH (08:11)
[2016-07-15] MEDS: predniSONE 5 MG TABLET PO SCH (08:12)
[2016-07-15] MEDS: MULTIVITAMINS THERAPEUTIC 1 TABLET PO SCH (08:12)
--- NOTE | 2016-07-15 13:52 | PROGRESS NOTE: IM APSO ---
Assessment and Plan - Date of Encounter Date of Encounter: 07/15/16 (1) Syncopal episodes Status: Acute Assessment and plan: Since admission no further episodes of syncope noted. Did not have big work up as was felt probably related to underlying UTI/diarrhea/dehydration. Continue to manage and monitor. Current Visit: Yes (2) UTI (urinary tract infection) due to urinary indwelling Lopez catheter Status: Acute Assessment and plan: Acute infection in history of recurrent UTI. Patient now has suprapubic catheter and seems as if this was working better for patient. Catheter and bag changed today and monitor for any ongoing skin concerns. Currently on IV ceftriaxone and will follow urine culture- so far >100,000 gram negative bacillus. If becomes febrile or other concerns will need blood cultures and broaden antibiotic coverage. Current Visit: Yes (3) BPH (benign prostatic hypertrophy) with urinary obstruction Status: Chronic Assessment and plan: suprapubic catheter Current Visit: Yes (4) Diarrhea Status: Acute Assessment and plan: Multiple episodes yesterday contributing to weakness/dehydration. At this time however unable to send stool studies as he has not had an additional episode. continue to monitor. Abdomen benign on exam Current Visit: Yes (5) Generalized weakness Status: Acute Assessment and plan: Acute on chronic- I do not know patient's baseline but by review from RNs who have cared for him this is a significant decline. PT to evaluate and treat and will likely need ongoing care into next week- ?swing bed vs other. Current Visit: Yes (6) Hypoxia Status: Acute Assessment and plan: Does have cough but otherwise no clear reason for hypoxia. Doing well with supplemental therapy. CXR with no acute abnormality. Current Visit: Yes (7) PMR (polymyalgia rheumatica) Status: Chronic Assessment and plan: Noted history of PMR in chart on chronic steroids. weakness related to a flare - patient unable to give clear history. At this time will wait to burst steroids and monitor his response to treatment of UTI. He is getting his typical daily dose of prednisone. 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 They will have further evaluation and discussion on Sunday. Current Visit: Yes - Time Spent With Patient Total time spent with greater than 50% in coordination of care (as documented) at patient's floor/unit and/or counseling patient: 25 - 35 minutes Estimated anticipated discharge: 2 days or longer IM: PN Subjective General: fatigue, good appetite (ate full breakfast) HEENT: no headache, no sore throat Cardiovascular: dizziness, other (no further syncopal episodes), no chest pain, no palpitations Respiratory: cough, no SOB Gastrointestinal: diarrhea (no documentation of additional stools since admission), no abdominal pain Genitourinary: other (suprapubic catheter with cloudy urine, irritation aroudn suprapubic site) Musculoskeletal: weakness Integumentary: wound (mild, around suprapubic catheter) Neurological: other (poor historian) IM: PN Objective Exam - I&O/Vital Signs I&O: Intake & Output 07/14/16 07/15/16 07/15/16 21:59 05:59 13:59 Intake Total 1400 Output Total 570 Balance 830 Weight 61.235 kg Intake: IV 1200 Right Hand 1200 Oral 200 Output: Urine 570 Other: Urine Appearance Sediment Cloudy Urine Color Yellow Yellow Voiding Method Indwelling Catheter Indwelling Catheter # Bowel Movements 0 Vital Signs: Last Vital Signs Temp 36.5 C 07/15/16 11:00 Pulse 83 07/15/16 11:00 Resp 16 07/15/16 11:00 BP 109/89 07/15/16 11:00 Pulse Ox 93 07/15/16 11:00 Oxygen Flow Rate 2 Oxygen Delivery Method Nasal Cannula - Constitutional General appearance: Present: average body habitus, cooperative. Absent: acute distress - Head Head exam: Present: atraumatic, normal inspection - Eye Eye exam: Absent: conjunctival injection - ENT ENT exam: Present: mucous membranes moist, normal oropharynx - Neck Neck exam: Present: normal inspection - Respiratory Respiratory exam: Present: CTAB, other (dry cough noted). Absent: accessory muscle use - Cardiovascular Cardiovascular exam: Present: RRR. Absent: systolic murmur - GI/Abdominal GI/Abdominal exam: Present: normal bowel sounds, soft, tenderness (suprapubic) - Extremities Exam Extremities exam: Present: normal inspection. Absent: calf tenderness, edema - Back Exam Back exam: Absent: CVA tenderness (L), CVA tenderness (R) - Neurological Exam Neurological exam: Present: alert, other (oriented to person and hospital only) - Psychiatric Psychiatric exam: Present: flat affect - Allied Health Notes Allied health notes reviewed: nursing, social work - Lab Labs: Laboratory Last Values WBC 3.8 X 10^3uL (3.9-10.7) L 07/15/16 06:03 RBC 4.11 X 10^6uL (4.20-6.10) L 07/15/16 06:03 Hgb 12.2 g/dL (14.0-18.0) L 07/15/16 06:03 Hct 36.7 % (42.0-54.0) L 07/15/16 06:03 MCV 89.4 fL (80.0-100.0) 07/15/16 06:03 MCH 29.7 pg (29.0-35.0) 07/15/16 06:03 MCHC 33.2 g/dL (32.0-36.0) 07/15/16 06:03 RDW 17.4 % (11.5-14.5) H 07/15/16 06:03 Plt Count 173 X 10^3uL (130-440) 07/15/16 06:03 MPV 7.7 fL (7.4-10.4) 07/15/16 06:03 Neutrophils % 57.1 % (54.0-75.0) 07/15/16 06:03 Lymphocytes % 32.2 % (20.0-40.0) 07/15/16 06:03 Eosinophils % 1.7 % (0.0-6.0) 07/15/16 06:03 Basophils % 0.6 % (0.0-2.0) 07/15/16 06:03 Neutrophils # 2.2 X 10^3uL (2.6-6.7) L 07/15/16 06:03 Lymphocytes # 1.2 X 10^3uL (0.8-3.8) 07/15/16 06:03 Monocytes 8.4 % (2.0-10.0) 07/15/16 06:03 Monocytes # 0.3 X 10^3uL (0.2-1.0) 07/15/16 06:03 Eosinophils # 0.1 X 10^3uL (0.0-0.4) 07/15/16 06:03 Basophils # 0.0 X 10^3uL (0.0-0.1) 07/15/16 06:03 Sodium 137 mmol/L (137-145) 07/15/16 06:03 Potassium 4.3 mmol/L (3.5-5.1) 07/15/16 06:03 Chloride 109 mmol/L (98-107) H 07/15/16 06:03 Carbon Dioxide 23 mmol/L (22-30) 07/15/16 06:03 BUN 18 mg/dL (9-20) 07/15/16 06:03 Creatinine 0.9 mg/dL (0.7-1.3) 07/15/16 06:03 GFR Calculation Not Reportable 07/15/16 06:03 Glucose 97 mg/dL (70-100) 07/15/16 06:03 Calcium 7.7 mg/dL (8.4-10.2) L 07/15/16 06:03 Magnesium 2.2 mg/dL (1.6-2.3) 07/14/16 12:30 Troponin I < 0.012 ng/mL (0.00-0.034) 07/14/16 12:30 Urine Color Yellow 07/14/16 12:55 Urine Appearance Cloudy A 07/14/16 12:55 Urine pH 7.0 (5-7) 07/14/16 12:55 Ur Specific [place] 1.025 (0.001-1.035) 07/14/16 12:55 Urine Protein 300mg/dl (3+) (NEG - TRACE) A 07/14/16 12:55 Urine Ketones 5mg/dl (NEGATIVE) A 07/14/16 12:55 Urine Blood 250 alayna/ul (3+) (NEGATIVE) A 07/14/16 12:55 Urine Nitrate Negative (NEGATIVE) 07/14/16 12:55 Urine Bilirubin 0.5 mg/100ml (1+) (NEGATIVE) A 07/14/16 12:55 Urine Urobilinogen 1mg/dl (normal) (NEG-1mg/dL) 07/14/16 12:55 Ur Leukocyte Esterase 500 wbc/ul (3+) (NEGATIVE) A 07/14/16 12:55 Urine RBC 25-50/hpf (0-5/hpf) 07/14/16 12:55 Urine WBC >100/hpf (0-4/hpf) 07/14/16 12:55 Ur Squamous Epith Cells 5-10/hpf (<= 15/hpf) 07/14/16 12:55 Urine Bacteria >50 organisms/hpf (<10/hpf) 07/14/16 12:55 Coarse Granular Casts 0-2/lpf (0-5/lpf) 07/14/16 12:55 Urine Mucus None seen (Up to 25%) 07/14/16 12:55 Urine Glucose Normal (NEGATIVE) 07/14/16 12:55 Quality Questions - VTE Prophylaxis Assessment VTE Present on Admission?: No Patient at risk for venous thromboembolism?: No VTE Risk Level: High Risk Pharmaceutical VTE prophylaxis contraindication reason: N/A- VTE prophylaxsis ordered Mechanical VTE prophylaxis contraindication reason: N/A- VTE prophylaxsis ordered
[2016-07-15] MEDS: cefTRIAXone SODIUM 1,000 MG in NORMAL SALINE MINI-BAG+ 100 ML IV SCH (14:14)
[2016-07-15] MEDS ORDERED: O2 HUMIDIFIER 650 ML BOTTLE INHALATION ONE (14:51)
[2016-07-16] MEDS: NORMAL SALINE 1,000 ML IV SCH ×2 (06:03→15:38)
[2016-07-16] MEDS: PANTOPRAZOLE 40 MG TABLET PO SCH (06:03)
[2016-07-16 06:35] LABS: BASOPHILS 0.6 % (0.0-2.0); EOSINOPHILS 2.6 % (0.0-6.0); EOSINOPHILS# 0.1 X 10^3uL (0.0-0.4); HEMATOCRIT 34.4 % (42.0-54.0); HEMOGLOBIN 11.3 g/dL (14.0-18.0); LYMPHOCYTES 28.5 % (20.0-40.0); LYMPHOCYTES# 1.2 X 10^3uL (0.8-3.8); MEAN CELL VOLUME 88.5 fL (80.0-100.0); MEAN CORPUS. HGB CONCENTRATION 32.9 g/dL (32.0-36.0); MEAN CORPUSCULAR HEMOGLOBIN 29.1 pg (29.0-35.0); MEAN PLATELET VOLUME 7.8 fL (7.4-10.4); MONOCYTES# 0.3 X 10^3uL (0.2-1.0); NEUTROPHILS 60.3 % (54.0-75.0); NEUTROPHILS# 2.6 X 10^3uL (2.6-6.7); PLATELET COUNT 141 X 10^3uL (130-440); RED BLOOD COUNT 3.88 X 10^6uL (4.20-6.10); RED CELL DISTRIBUTION WIDTH 16.9 % (11.5-14.5); WHITE BLOOD COUNT 4.2 X 10^3uL (3.9-10.7)
[2016-07-16 06:55] LABS: A/G RATIO 0.8; ALBUMIN 2.7 g/dL (3.5-5.0); ALKALINE PHOSPHATASE 78 U/L (38-126); ALT 31 U/L (21-72); AST 24 U/L (17-59); BILIRUBIN, TOTAL 0.4 mg/dL (0.2-1.3); BLOOD UREA NITROGEN 15 mg/dL (9-20); CALCIUM 7.7 mg/dL (8.4-10.2); CHLORIDE 105 mmol/L (98-107); CREATININE 0.8 mg/dL (0.7-1.3); GLUCOSE 90 mg/dL (70-100); POTASSIUM 3.8 mmol/L (3.5-5.1); SODIUM 135 mmol/L (137-145); TOTAL PROTEIN 6.1 g/dL (6.3-8.2)
[2016-07-16] MEDS: ALLOPURINOL 100 MG TAB PO SCH (08:11)
[2016-07-16] MEDS: MULTIVITAMINS THERAPEUTIC 1 TABLET PO SCH (08:13)
[2016-07-16] MEDS: predniSONE 5 MG TABLET PO SCH (08:13)
--- NOTE | 2016-07-16 09:16 | PROGRESS NOTE: IM APSO ---
Assessment and Plan - Date of Encounter Date of Encounter: 07/16/16 (1) Syncopal episodes Status: Acute Assessment and plan: Since admission no further episodes of syncope noted. Did not have big work up as was felt probably related to underlying UTI/diarrhea/dehydration. Continue to manage and monitor. Current Visit: Yes (2) UTI (urinary tract infection) due to urinary indwelling Lopez catheter Status: Acute Assessment and plan: Acute infection in history of recurrent UTI. Patient now has suprapubic catheter and seems as if this was working better for patient. Catheter and bag changed yesterday and monitor for any ongoing skin concerns. Currently on IV ceftriaxone and will follow urine culture- so far >100,000 gram negative bacillus. If becomes febrile or other concerns will need blood cultures and broaden antibiotic coverage. 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 Has not had any further diarrhea episodes since admission and thus stool studies have not been sent off yet. continue to monitor. Abdomen benign on exam Current Visit: Yes (5) Generalized weakness Status: Acute Assessment and plan: Acute on chronic- I do not know patient's baseline but by review from RNs who have cared for him this is a significant decline. PT to evaluate and treat and will likely need ongoing care into next week- ?swing bed vs other. Current Visit: Yes (6) Hypoxia Status: Acute Assessment and plan: Does have cough but otherwise no clear reason for hypoxia. Doing well with supplemental therapy. CXR with no acute abnormality. Starting IS. May want to consider repeat CXR on Sunday if ongoing concerns. Current Visit: Yes (7) PMR (polymyalgia rheumatica) Status: Chronic Assessment and plan: Noted history of PMR in chart on chronic steroids. weakness related to a flare - patient unable to give clear history. At this time will wait to burst steroids and monitor his response to treatment of UTI. He is getting his typical daily dose of prednisone. 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 They will have further evaluation and discussion on Sunday. Granddaughter who is secondary POA was very upset yesterday regarding not being updated on Abhishek's care. She was argumentative and yelling to staff and well as myself. She even wanted patient to be transferred to different hospital vs signing him out AMA. Thankfully I was able to speak with Selena the primary POA and she did not want patient to be transferred and wanted to continue with current management plan. Again there will need to be some major discussions this week regarding [facility] plan of care and safety concerns. Current Visit: Yes (9) Anemia Status: Acute Assessment and plan: Likely chronic disease/hemodilution. Unclear patient's baseline. No obvious source of bleeding. Defer further work up/evaluation to PCP if indicated. Current Visit: Yes (10) Hypocalcemia Status: Acute Assessment and plan: Not true hypocalcemia as albumin low- corrected calcium in normal range. Consider nutrition consult Current Visit: Yes - Time Spent With Patient Total time spent with greater than 50% in coordination of care (as documented) at patient's floor/unit and/or counseling patient: Estimated anticipated discharge: 2 days or longer IM: PN Subjective Interval history: Medically patient continues to slowly improve. We did have some social concerns last night between POA and secondary POA. Selena, patient's POA, did not want any change in management or plan or care. General: fatigue, good appetite (ate full breakfast) HEENT: no headache, no sore throat Cardiovascular: dizziness, other (no further syncopal episodes), no chest pain, no palpitations Respiratory: cough, no SOB Gastrointestinal: diarrhea (no documentation of additional stools since admission), no abdominal pain Genitourinary: other (suprapubic catheter successfully changed yesterday with improvement in sedemation and color of urine) Musculoskeletal: weakness Integumentary: wound (mild, around suprapubic catheter) Neurological: other (poor historian) IM: PN Objective Exam - I&O/Vital Signs I&O: Intake & Output 07/15/16 07/16/16 07/16/16 21:59 05:59 13:59 Intake Total 2180 1300 Output Total 1000 1500 Balance 1180 -200 Intake: IV 1280 1100 Right Hand 1280 1100 Oral 900 200 Output: Urine 1000 1500 Other: Urine Appearance Clear Clear Urine Color Straw Yellow Suprapubic Yellow Yellow Voiding Method Indwelling Catheter Indwelling Catheter # Bowel Movements 0 Vital Signs: Last Vital Signs Temp 37.0 C 07/16/16 06:38 Pulse 82 07/16/16 06:38 Resp 20 07/16/16 06:38 BP 119/72 07/16/16 06:38 Pulse Ox 96 07/16/16 06:38 Oxygen Flow Rate 3 Oxygen Delivery Method Nasal Cannula - Constitutional General appearance: Present: average body habitus, cooperative. Absent: acute distress - Head Head exam: Present: atraumatic, normal inspection - Eye Eye exam: Absent: conjunctival injection - ENT ENT exam: Present: mucous membranes moist, normal oropharynx - Neck Neck exam: Present: normal inspection - Respiratory Respiratory exam: Present: CTAB, other (dry cough noted). Absent: accessory muscle use - Cardiovascular Cardiovascular exam: Present: RRR. Absent: systolic murmur - GI/Abdominal GI/Abdominal exam: Present: normal bowel sounds, soft, tenderness (suprapubic) - Extremities Exam Extremities exam: Present: normal inspection. Absent: calf tenderness, edema - Back Exam Back exam: Absent: CVA tenderness (L), CVA tenderness (R) - Neurological Exam Neurological exam: Present: alert, other (oriented to person and hospital only) - Psychiatric Psychiatric exam: Present: flat affect - Allied Health Notes Allied health notes reviewed: nursing, social work - Lab Labs: Laboratory Last Values WBC 4.2 X 10^3uL (3.9-10.7) 07/16/16 06:03 RBC 3.88 X 10^6uL (4.20-6.10) L 07/16/16 06:03 Hgb 11.3 g/dL (14.0-18.0) L 07/16/16 06:03 Hct 34.4 % (42.0-54.0) L 07/16/16 06:03 MCV 88.5 fL (80.0-100.0) 07/16/16 06:03 MCH 29.1 pg (29.0-35.0) 07/16/16 06:03 MCHC 32.9 g/dL (32.0-36.0) 07/16/16 06:03 RDW 16.9 % (11.5-14.5) H 07/16/16 06:03 Plt Count 141 X 10^3uL (130-440) 07/16/16 06:03 MPV 7.8 fL (7.4-10.4) 07/16/16 06:03 Neutrophils % 60.3 % (54.0-75.0) 07/16/16 06:03 Lymphocytes % 28.5 % (20.0-40.0) 07/16/16 06:03 Eosinophils % 2.6 % (0.0-6.0) 07/16/16 06:03 Basophils % 0.6 % (0.0-2.0) 07/16/16 06:03 Neutrophils # 2.6 X 10^3uL (2.6-6.7) 07/16/16 06:03 Lymphocytes # 1.2 X 10^3uL (0.8-3.8) 07/16/16 06:03 Monocytes 8.0 % (2.0-10.0) 07/16/16 06:03 Monocytes # 0.3 X 10^3uL (0.2-1.0) 07/16/16 06:03 Eosinophils # 0.1 X 10^3uL (0.0-0.4) 07/16/16 06:03 Basophils # 0.0 X 10^3uL (0.0-0.1) 07/16/16 06:03 Sodium 135 mmol/L (137-145) L 07/16/16 06:03 Potassium 3.8 mmol/L (3.5-5.1) 07/16/16 06:03 Chloride 105 mmol/L (98-107) 07/16/16 06:03 Carbon Dioxide 24 mmol/L (22-30) 07/16/16 06:03 BUN 15 mg/dL (9-20) 07/16/16 06:03 Creatinine 0.8 mg/dL (0.7-1.3) 07/16/16 06:03 GFR Calculation Not Reportable 07/16/16 06:03 Glucose 90 mg/dL (70-100) 07/16/16 06:03 Calcium 7.7 mg/dL (8.4-10.2) L 07/16/16 06:03 Magnesium 2.2 mg/dL (1.6-2.3) 07/14/16 12:30 Total Bilirubin 0.4 mg/dL (0.2-1.3) D 07/16/16 06:03 AST 24 U/L (17-59) 07/16/16 06:03 ALT 31 U/L (21-72) 07/16/16 06:03 Alkaline Phosphatase 78 U/L (38-126) 07/16/16 06:03 Troponin I < 0.012 ng/mL (0.00-0.034) 07/14/16 12:30 Total Protein 6.1 g/dL (6.3-8.2) L D 07/16/16 06:03 Albumin 2.7 g/dL (3.5-5.0) L D 07/16/16 06:03 Albumin/Globulin Ratio 0.8 07/16/16 06:03 Urine Color Yellow 07/14/16 12:55 Urine Appearance Cloudy A 07/14/16 12:55 Urine pH 7.0 (5-7) 07/14/16 12:55 Ur Specific [place] 1.025 (0.001-1.035) 07/14/16 12:55 Urine Protein 300mg/dl (3+) (NEG - TRACE) A 07/14/16 12:55 Urine Ketones 5mg/dl (NEGATIVE) A 07/14/16 12:55 Urine Blood 250 alayna/ul (3+) (NEGATIVE) A 07/14/16 12:55 Urine Nitrate Negative (NEGATIVE) 07/14/16 12:55 Urine Bilirubin 0.5 mg/100ml (1+) (NEGATIVE) A 07/14/16 12:55 Urine Urobilinogen 1mg/dl (normal) (NEG-1mg/dL) 07/14/16 12:55 Ur Leukocyte Esterase 500 wbc/ul (3+) (NEGATIVE) A 07/14/16 12:55 Urine RBC 25-50/hpf (0-5/hpf) 07/14/16 12:55 Urine WBC >100/hpf (0-4/hpf) 07/14/16 12:55 Ur Squamous Epith Cells 5-10/hpf (<= 15/hpf) 07/14/16 12:55 Urine Bacteria >50 organisms/hpf (<10/hpf) 07/14/16 12:55 Coarse Granular Casts 0-2/lpf (0-5/lpf) 07/14/16 12:55 Urine Mucus None seen (Up to 25%) 07/14/16 12:55 Urine Glucose Normal (NEGATIVE) 07/14/16 12:55 Quality Questions - VTE Prophylaxis Assessment VTE Present on Admission?: No Patient at risk for venous thromboembolism?: Yes VTE Risk Level: High Risk Pharmaceutical VTE prophylaxis contraindication reason: N/A- VTE prophylaxsis ordered Mechanical VTE prophylaxis contraindication reason: N/A- VTE prophylaxsis ordered
[2016-07-16] MEDS: cefTRIAXone SODIUM 1,000 MG in NORMAL SALINE MINI-BAG+ 100 ML IV SCH (14:39)
[2016-07-17] MEDS: NORMAL SALINE 1,000 ML IV SCH (01:11)
[2016-07-17] MEDS: PANTOPRAZOLE 40 MG TABLET PO SCH (06:32)
[2016-07-17 06:51] LABS: BASOPHILS 0.6 % (0.0-2.0); EOSINOPHILS 3.4 % (0.0-6.0); EOSINOPHILS# 0.1 X 10^3uL (0.0-0.4); HEMATOCRIT 36.5 % (42.0-54.0); HEMOGLOBIN 12.3 g/dL (14.0-18.0); LYMPHOCYTES# 1.3 X 10^3uL (0.8-3.8); MEAN CELL VOLUME 87.9 fL (80.0-100.0); MEAN CORPUS. HGB CONCENTRATION 33.6 g/dL (32.0-36.0); MEAN CORPUSCULAR HEMOGLOBIN 29.5 pg (29.0-35.0); MEAN PLATELET VOLUME 8.3 fL (7.4-10.4); MONOCYTES 11.4 % (2.0-10.0); MONOCYTES# 0.5 X 10^3uL (0.2-1.0); NEUTROPHILS 52.6 % (54.0-75.0); NEUTROPHILS# 2.1 X 10^3uL (2.6-6.7); PLATELET COUNT 131 X 10^3uL (130-440); RED BLOOD COUNT 4.16 X 10^6uL (4.20-6.10); RED CELL DISTRIBUTION WIDTH 16.6 % (11.5-14.5)
[2016-07-17 07:00] LABS: BLOOD UREA NITROGEN 13 mg/dL (9-20); CALCIUM 7.9 mg/dL (8.4-10.2); CHLORIDE 107 mmol/L (98-107); CREATININE 0.8 mg/dL (0.7-1.3); GLUCOSE 90 mg/dL (70-100); POTASSIUM 3.6 mmol/L (3.5-5.1); SODIUM 138 mmol/L (137-145)
[2016-07-17] MEDS ORDERED: CEPHALEXIN MONOHYDRATE 250 MG CAPSULE PO SCH (08:00)
[2016-07-17] MEDS: ALLOPURINOL 100 MG TAB PO SCH (08:21)
[2016-07-17] MEDS: MULTIVITAMINS THERAPEUTIC 1 TABLET PO SCH (08:21)
[2016-07-17] MEDS: predniSONE 5 MG TABLET PO SCH (08:22)
--- NOTE | 2016-07-17 08:41 | DC SUMMARY: IM Note ---
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 See swing-bed H&P (dictated). - Time Spent with Patient Total time spent providing and/or coordinating discharge services: Discharge - Patient/Caregiver Discharge Instructions Additional Instructions: Pt. too weak to go home. Will transfer to [facility] now. Disposition: [facility] BED Discharge Summary Data - Medication History Medication History: Home Medications Allopurinol [Zyloprim*] 150 mg PO DAILY 07/14/16 Multivitamins,Therapeutic [Thera Multivitamin*] 1 tab PO DAILY 07/14/16 Pantoprazole Sodium [Protonix] 40 mg PO DAILY 07/14/16 Acetaminophen [Tylenol*] 650 mg PO Q6H PRN #0 tablet 07/17/16 Cephalexin Monohydrate [Keflex*] 500 mg PO TID@0800,1600,2200 capsule 07/17/16 predniSONE [Deltasone*] 5 mg PO DAILY tablet 07/17/16 Inpatient Medications 07/14/16 19:00 predniSONE [Deltasone] 5 mg PO DAILY 07/17/16 08:00 Cephalexin Monohydrate [Keflex] 500 mg PO TID@0800,1600,2200 07/17/16 09:00 Docusate Sodium [Colace] 100 mg PO BID Procedures and tests throughout hospitalization: Completed Lab Orders 07/16/16 06:03 CBC AUTO DIF, MDIF/RMOR IF IND [HEM] AMDRAW cmp [COMPREHENSIVE METABOLIC PANEL] [CHEM] AMDRAW 07/17/16 06:10 BMP [BASIC METABOLIC PANEL] [CHEM] AMDRAW CBC AUTO DIF, MDIF/RMOR IF IND [HEM] AMDRAW Pending Orders 07/14/16 18:13 Occupation Therapy Eval and Treat [OT] Routine 07/14/16 18:15 Miscellaneous Care Order . 07/14/16 18:16 C DIFFICILE BY PCR [RM] Routine 07/14/16 18:30 OCCULT BLOOD (1-3 SAMPLES) [RM] 07/14/16 19:00 predniSONE [Deltasone] 5 mg PO DAILY 07/15/16 05:00 Stool WBC [FECAL LEUKS (LACTOFERRIN)] [RM] 07/15/16 10:05 Physical Therapy Plan of Care [PT] Routine 07/16/16 09:14 Incentive Spirometry Q12H 07/17/16 08:00 Cephalexin Monohydrate [Keflex] 500 mg PO TID@0800,1600,2200 07/17/16 08:15 Discharge ONCE 07/17/16 09:00 Docusate Sodium [Colace] 100 mg PO BID Labs on day of discharge: Labs from last 24 hours 07/17/16 06:10 WBC 4.0 RBC 4.16 L Hgb 12.3 L Hct 36.5 L MCV 87.9 MCH 29.5 MCHC 33.6 RDW 16.6 H Plt Count 131 MPV 8.3 Neutrophils % 52.6 L Lymphocytes % 32.0 Eosinophils % 3.4 Basophils % 0.6 Neutrophils # 2.1 L Lymphocytes # 1.3 Monocytes 11.4 H Monocytes # 0.5 Eosinophils # 0.1 Basophils # 0.0 Sodium 138 Potassium 3.6 Chloride 107 Carbon Dioxide 25 BUN 13 Creatinine 0.8 GFR Calculation Not Reportable Glucose 90 Calcium 7.9 L IM: Discharge Physical Exam - I&O/Vital Signs I&O: Intake & Output 07/16/16 07/17/16 07/17/16 21:59 05:59 13:59 Intake Total 2060 1300 200 Output Total 1600 1675 300 Balance 460 -375 -100 Intake: IV 1360 1100 Right Hand 1360 1100 Oral 700 200 200 Output: Urine 1600 1675 300 Other: Urine Appearance Clear Clear Clear Urine Color Pale Yellow Yellow Yellow Suprapubic Yellow Yellow Yellow Voiding Method Indwelling Catheter Indwelling Catheter Toilet # Bowel Movements 0 0 Vital Signs: Last Vital Signs Temp 36.8 C 07/17/16 06:23 Pulse 64 07/17/16 06:23 Resp 15 07/17/16 06:23 BP 153/88 07/17/16 06:23 Pulse Ox 96 07/17/16 06:23 Oxygen Flow Rate 3 Oxygen Delivery Method Nasal Cannula - Constitutional General appearance: Present: average body habitus, cooperative. Absent: acute distress - Head Head exam: Present: atraumatic, normal inspection - Eye Eye exam: Absent: conjunctival injection - ENT ENT exam: Present: mucous membranes moist - Neck Neck exam: Present: normal inspection - Respiratory Respiratory exam: Present: decreased breath sounds (in both bases), CTAB, other (dry cough noted). Absent: accessory muscle use - Cardiovascular Cardiovascular exam: Present: RRR. Absent: systolic murmur - GI/Abdominal GI/Abdominal exam: Present: normal bowel sounds, soft, tenderness (suprapubic) - Extremities Exam Extremities exam: Present: normal inspection, edema (trace bilaterally). Absent : calf tenderness - Back Exam Back exam: Absent: CVA tenderness (L), CVA tenderness (R) - Neurological Exam Neurological exam: Present: alert, other (oriented to person and hospital only) - Psychiatric Psychiatric exam: Present: flat affect - Allied Health Notes Allied health notes reviewed: nursing, social work
[2016-07-17] MEDS ORDERED: DOCUSATE SODIUM 100 MG CAPSULE PO SCH (09:00)
[2016-07-17 09:43] LABS: ERYTHROCYTE SEDIMENTATION RATE 22 MM/HR (0-10)
[2016-07-17 11:10] VITALS: BP 130/86; PULSE 84; RESP 16; TEMP 98.1; O2SAT 90
== END 2016-07-17 11:25 | disposition swing bed (61) | DRG 699 ==
LOC: ER 11:43 → IN 15:07 → OBSVTOIN 18:08
PROVIDERS: ADMIT Family Medicine; ATTEND Family Medicine
DX: T83.511A Infection and inflammatory reaction due to indwelling urethral catheter, initial encounter (principal); R55 Syncope and collapse; N13.8 Other obstructive and reflux uropathy; I50.32 Chronic diastolic (congestive) heart failure; D63.8 Anemia in other chronic diseases classified elsewhere; E83.51 Hypocalcemia; R53.1 Weakness; M62.59 Muscle wasting and atrophy, not elsewhere classified, multiple sites; I72.3 Aneurysm of iliac artery; R09.02 Hypoxemia; Z99.81 Dependence on supplemental oxygen; R19.7 Diarrhea, unspecified; E86.0 Dehydration; N39.0 Urinary tract infection, site not specified; E44.0 Moderate protein-calorie malnutrition; N18.2 Chronic kidney disease, stage 2 (mild); N40.1 Benign prostatic hyperplasia with lower urinary tract symptoms; I71.4 Abdominal aortic aneurysm, without rupture; M10.9 Gout, unspecified; M15.9 Polyosteoarthritis, unspecified; M35.3 Polymyalgia rheumatica; I25.10 Atherosclerotic heart disease of native coronary artery without angina pectoris; M51.36 Other intervertebral disc degeneration, lumbar region; R29.6 Repeated falls; Z79.899 Other long term (current) drug therapy; Z74.3 Need for continuous supervision
CPT/HCPCS: 36415; 71010; 80048; 80053; 81001; 83735; 84484; 85025; 85651; 87077; 87086; 87186; 93010; 93041; 96361; 96365; 99285; A0425; A0427; E0555; J0696; J7030; J7512

== ENCOUNTER 2016-07-17 08:00 | Inpatient (IN) | payer MEDICARE ==
[2016-07-17] MEDS ORDERED: HOME MEDICATION LIST NEEDED 1 EA EACH MC ONE (08:28)
[2016-07-17] MEDS ORDERED: ACETAMINOPHEN 325 MG TABLET PO PRN (08:34)
[2016-07-17] MEDS: ALLOPURINOL 100 MG TAB PO SCH (12:06)
[2016-07-17] MEDS: PANTOPRAZOLE 40 MG TABLET PO SCH (12:06)
[2016-07-17] MEDS: MULTIVITAMINS THERAPEUTIC 1 TABLET PO SCH (12:07)
[2016-07-17] MEDS: predniSONE 5 MG TABLET PO SCH (12:07)
--- NOTE | 2016-07-17 14:44 | HISTORY & PHYSICAL ---
DATE OF ADMISSION INPATIENT: 07/14/16 DATE OF TRANSFER TO SWING BED: 07/17/16 PRIMARY CARE PHYSICIAN: Barrie Sandoval MD ATTENDING PHYSICIAN: Barrie Sandoval MD CHIEF COMPLAINT: Diarrhea and syncope. HISTORY OF PRESENT ILLNESS: This 80-year-old gentleman was admitted to [facility] on 07/14/16 after having 2 syncopal episodes at home. These were likely related to some acute diarrhea and dehydration. He did not fall during these. He had no complaints of pain, but was profoundly weak. He has a chronic indwelling suprapubic catheter and was found to have a urinary tract infection. ACUTE CARE COURSE: He had improvement in his urinary tract infection with IV Rocephin daily. His dehydration was addressed with IV normal saline and pushing oral fluids. Despite these improvements, he remained profoundly weak. On the day prior to discharge, he required a 2-person full assist to get from the bed to a bedside chair. He was evaluated by Physical Therapy, who felt that a swing bed stay would likely be helpful in restoring his strength. The consistently has stated that he wants to get back home. He would like to go to a group home. He feels that his care at home is good from his granddaughter and her . He states that they provide him adequate food and assistance. Adult Protective Services was called on the day of admission, because the patient was not clean, having some dried feces on his legs and bottom. APS evaluation is still in progress. PAST MEDICAL HISTORY 1. Benign prostatic hypertrophy with obstruction, generally well treated with a suprapubic catheter. 2. Recurrent urinary tract infections, including on this admission. He also had acute renal failure associated with an acute urinary tract infection requiring admission to [facility] on 06/07/16. 3. Occasional falls at home. 4. Abdominal aortic aneurysm without rupture. Asymptomatic. 5. Iliac artery aneurysm on the left asymptomatic. 6. Mild chronic memory loss, perhaps slightly worsened currently. 7. History of gout. 8. Recent history of polymyalgia rheumatica. 9. Ichthyosis. MEDICATIONS AT TIME OF TRANSFER Allopurinol 100 mg daily. Multivitamin 1 daily. Pantoprazole 40 mg before breakfast. Prednisone 5 mg q.a.m. Arthritis-strength extended release Tylenol 650 mg t.i.d. PRN for pain. Cephalexin 500 mg p.o. t.i.d. for the urinary tract infection. ALLERGIES: No known drug allergies. SOCIAL HISTORY: Patient lives at home with his granddaughter Sachin and her Kip. They have 2 kids and multiple social challenges. Patient is a former smoker, having quit in 1999 and he does not drink alcohol currently. He confirmed DNR status. PHYSICAL EXAMINATION VITAL SIGNS: At time of transfer, temperature 36.8, blood pressure 153/88, pulse 64, respiratory rate 15 and O2 saturation was 96% on 3 liters and 86% on room air. GENERAL: He was alert and oriented to person and place but not day, date or year. HEENT: Oral mucosa was moist. Neck without adenopathy. LUNGS: Clear except for some decreased breath sounds in both bases. HEART: Regular rate and rhythm with no murmur. ABDOMEN: Soft, nontender, nondistended. No masses or hepatosplenomegaly. EXTREMITIES: Trace bilateral pedal edema. SKIN: Chronically dry appearing from his ichthyosis despite regular moisturization. NEURO EXAM: Nonfocal. LABORATORY DATA: White count of 4,000 with 53% neutrophils and 32% lymphs. Hemoglobin was 12, hematocrit 36.5 and platelets were 131,000. Sodium was 138, potassium 3.6 and chloride 7. CO2 was 25 and BUN was 13 with a creatinine of 0.8 (compared to 1.5 on admission). His glucose fasting was 90 and calcium was low at 7.9, but his albumin is low at 2.7. Correcting the calcium for the low albumin results in the corrected calcium level of 9.2. His urine initially had 3 + leukocyte blood and protein. A culture grew Klebsiella which was sensitive to moist antibiotics and only resistant to Ampicillin and Macrobid. IMAGING: His initial chest x-ray was unchanged from prior ones. IMPRESSION 1. Profound generalized weakness related to combination of issues as listed below. Unsafe to go home yet. 2. Recent urinary tract infection responding nicely to initial treatment with Ceftriaxone and now Cephalexin. 3. Benign prostatic hypertrophy with obstruction, treated with chronic indwelling suprapubic catheter. Now clean. 4. Chronic kidney disease, stage 3, much improved with IV hydration through the weekend. 5. Previous history of acute renal failure from urinary tract infections, most recently 1 month ago. 6. Polymyalgia rheumatica, probably contributing some to his weakness, although he no longer has any achiness on the Prednisone 5 mg daily. 7. Recent syncopal events related to dehydration, now resolved with IV hydration. 8. Recent diarrhea or uncertain etiology, totally resolved. No bowel movement in the last 3 days. 9. History of abdominal aortic aneurysm, asymptomatic. Not a surgical candidate. 10. Distant history of gout. PLAN: Patient has been transferred to swing bed status here at [facility]. The goal is to return him home assuming [facility] deems that a safe environment. He will work with Physical Therapy and Occupational Therapy to improve strength and balance. I will continue him on the current medications. TKD
[2016-07-17] MEDS: CEPHALEXIN MONOHYDRATE 250 MG CAPSULE PO SCH ×2 (16:42→21:20)
[2016-07-17] MEDS: SENNOSIDES/DOCUSATE SODIUM 1 TAB TABLET PO SCH (21:20)
[2016-07-18] MEDS: PANTOPRAZOLE 40 MG TABLET PO SCH (06:27)
[2016-07-18] MEDS: predniSONE 5 MG TABLET PO SCH (08:38)
[2016-07-18] MEDS: MULTIVITAMINS THERAPEUTIC 1 TABLET PO SCH (08:38)
[2016-07-18] MEDS: SENNOSIDES/DOCUSATE SODIUM 1 TAB TABLET PO SCH ×2 (08:38→21:33)
[2016-07-18] MEDS: CEPHALEXIN MONOHYDRATE 250 MG CAPSULE PO SCH ×3 (08:39→21:34)
[2016-07-18] MEDS: ALLOPURINOL 100 MG TAB PO SCH (08:39)
[2016-07-18] MEDS: POLYETHYLENE GLYCOL 3350 17 GM POWD.PACK PO SCH (08:39)
[2016-07-19] MEDS: PANTOPRAZOLE 40 MG TABLET PO SCH (06:09)
--- NOTE | 2016-07-19 07:26 | PROGRESS NOTE: IM APSO ---
Assessment and Plan - Date of Encounter Date of Encounter: 07/19/16 (1) Generalized weakness Status: Acute Assessment and plan: Improved slightly. He is now able to transfer better from the bed to the bedside chair. Current Visit: No (2) Disuse muscle atrophy Status: Acute Assessment and plan: Improving slowly. Current Visit: No (3) Hypoxia Status: Acute Assessment and plan: Improving gradually. His room air pulse ox this morning was 87%, compared to the low 70s on initial admission for inpatient care.he has some new left basilar rales this morning. I discussed this with the respiratory therapist. We will get him up and moving more. No clinical signs of pneumonia, but will recheck a CBC tomorrow Current Visit: No (4) Syncopal episodes Status: Acute Assessment and plan: No recurrence of this since admission. I suspect it was due to dehydration and orthostatic hypotension. Current Visit: No (5) PMR (polymyalgia rheumatica) Status: Chronic Assessment and plan: This is under good control with prednisone 5 mg daily. We'll continue that. 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 At this point, though, it appears that he will go back home when he is strong enough. Hopefully that will be at the end of this week. Current Visit: No (7) UTI (urinary tract infection) due to urinary indwelling catheter Status: Acute Assessment and plan: His Klebsiella UTI is resolved. The urine remains clear. I will give him 2 more days of Keflex. Current Visit: No - Time Spent With Patient Total time spent with greater than 50% in coordination of care (as documented) at patient's floor/unit and/or counseling patient: IM: PN Subjective General: fatigue, confusion, no anxiety, no depression, no fever, no chills Cardiovascular: no chest pain Respiratory: no cough, no wheeze, no SOB Gastrointestinal: no abdominal pain, no nausea, no vomiting, no diarrhea, no constipation Genitourinary: no hematuria, no flank pain Musculoskeletal: no swelling Integumentary: no rashes Neurological: no headache IM: PN Objective Exam - I&O/Vital Signs I&O: Intake & Output 07/18/16 07/19/16 07/19/16 21:59 05:59 13:59 Intake Total 120 450 Output Total 1700 Balance 120 -1250 Intake: Oral 450 Oral Supplement 120 Output: Urine 1700 Other: Urine Appearance Clear Urine Color Yellow Stool Size Small Stool Characteristics Soft Baird Voiding Method Indwelling Catheter # Bowel Movements 1 Vital Signs: Last Vital Signs Temp 36.2 C L 07/19/16 06:28 Pulse 73 07/19/16 06:28 Resp 18 07/19/16 06:28 BP 139/84 07/19/16 06:28 Pulse Ox 91 07/19/16 06:28 Oxygen Flow Rate 1 Oxygen Delivery Method Nasal Cannula - Constitutional General appearance: Present: average body habitus - Head Head exam: Present: normal inspection - ENT ENT exam: Present: mucous membranes moist - Respiratory Respiratory exam: Present: rales (right base, otherwise clear) - Cardiovascular Cardiovascular exam: Present: RRR. Absent: systolic murmur - GI/Abdominal GI/Abdominal exam: Present: soft. Absent: distended, tenderness - Extremities Exam Extremities exam: Absent: edema, tenderness - Back Exam Back exam: Absent: CVA tenderness (L), CVA tenderness (R) - Neurological Exam Neurological exam: Present: alert. Absent: oriented X3 (oriented to place and person only) - Psychiatric Psychiatric exam: Present: normal mood. Absent: agitated - Skin Skin exam: Present: dry. Absent: rash Quality Questions - VTE Prophylaxis Assessment VTE Present on Admission?: No Patient at risk for venous thromboembolism?: Yes VTE Risk Level: High Risk Pharmaceutical VTE prophylaxis contraindication reason: contraindicated ( history of recurrent epistaxis) Mechanical VTE prophylaxis contraindication reason: N/A- VTE prophylaxsis ordered
[2016-07-19] MEDS: ALLOPURINOL 100 MG TAB PO SCH (08:28)
[2016-07-19] MEDS: MULTIVITAMINS THERAPEUTIC 1 TABLET PO SCH (08:28)
[2016-07-19] MEDS: predniSONE 5 MG TABLET PO SCH (08:29)
[2016-07-19] MEDS: CEPHALEXIN MONOHYDRATE 250 MG CAPSULE PO SCH ×2 (08:29→20:44)
[2016-07-19] MEDS: SENNOSIDES/DOCUSATE SODIUM 1 TAB TABLET PO SCH ×2 (08:29→20:44)
[2016-07-19] MEDS: POLYETHYLENE GLYCOL 3350 17 GM POWD.PACK PO SCH (08:56)
[2016-07-19] MEDS ORDERED: CEPHALEXIN MONOHYDRATE 250 MG CAPSULE PO ONE (20:42)
[2016-07-20 05:55] LABS: BASOPHILS 0.3 % (0.0-2.0); EOSINOPHILS 4.2 % (0.0-6.0); EOSINOPHILS# 0.3 X 10^3uL (0.0-0.4); HEMATOCRIT 36.4 % (42.0-54.0); HEMOGLOBIN 12.5 g/dL (14.0-18.0); LYMPHOCYTES# 1.8 X 10^3uL (0.8-3.8); MEAN CELL VOLUME 87.8 fL (80.0-100.0); MEAN CORPUS. HGB CONCENTRATION 34.3 g/dL (32.0-36.0); MEAN CORPUSCULAR HEMOGLOBIN 30.1 pg (29.0-35.0); MEAN PLATELET VOLUME 7.8 fL (7.4-10.4); MONOCYTES 8.6 % (2.0-10.0); MONOCYTES# 0.5 X 10^3uL (0.2-1.0); NEUTROPHILS 56.9 % (54.0-75.0); NEUTROPHILS# 3.5 X 10^3uL (2.6-6.7); PLATELET COUNT 193 X 10^3uL (130-440); RED BLOOD COUNT 4.14 X 10^6uL (4.20-6.10); WHITE BLOOD COUNT 6.1 X 10^3uL (3.9-10.7)
[2016-07-20 06:08] LABS: BLOOD UREA NITROGEN 17 mg/dL (9-20); CALCIUM 8.5 mg/dL (8.4-10.2); CHLORIDE 105 mmol/L (98-107); CREATININE 0.8 mg/dL (0.7-1.3); GLUCOSE 91 mg/dL (70-100); POTASSIUM 3.9 mmol/L (3.5-5.1); SODIUM 137 mmol/L (137-145)
[2016-07-20] MEDS: PANTOPRAZOLE 40 MG TABLET PO SCH (06:47)
--- NOTE | 2016-07-20 08:53 | PROGRESS NOTE: IM APSO ---
Assessment and Plan - Date of Encounter Date of Encounter: 07/20/16 (1) Generalized weakness Status: Acute Assessment and plan: Improving slowly. Current Visit: No (2) Disuse muscle atrophy Status: Acute Assessment and plan: Improving slowly. Current Visit: No (3) Hypoxia Status: Acute Assessment and plan: Improving gradually. He does not use oxygen at home. I am hoping that he will needed at discharge tomorrow Current Visit: No (4) Syncopal episodes Status: Acute Assessment and plan: No recurrence of this since admission. I suspect it was due to dehydration and orthostatic hypotension. Current Visit: No (5) PMR (polymyalgia rheumatica) Status: Chronic Assessment and plan: This is under good control with prednisone 5 mg daily. We'll continue that. 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 At this point, though, it appears that he will go back home when he is strong enough. Hopefully that will be at the end of this week. Current Visit: No (7) UTI (urinary tract infection) due to urinary indwelling catheter Status: Acute Assessment and plan: His Klebsiella UTI is resolved. The urine remains clear. I will give him 1 more day of Keflex. Current Visit: No (8) Dystrophic nail Status: Acute Assessment and plan: All of his toenails are dystrophic. I trimmed all of them today. All his fingernails for very long. I trimmed them as well. Current Visit: Yes - Time Spent With Patient Total time spent with greater than 50% in coordination of care (as documented) at patient's floor/unit and/or counseling patient: IM: PN Subjective General: confusion (mild), no anxiety, no depression, no fever, no chills Cardiovascular: no chest pain Respiratory: no cough, no wheeze, no SOB Gastrointestinal: no abdominal pain, no nausea, no vomiting, no diarrhea, no constipation Genitourinary: no hematuria, no flank pain Musculoskeletal: no swelling Integumentary: no rashes Neurological: no headache IM: PN Objective Exam - I&O/Vital Signs I&O: Intake & Output 07/19/16 07/20/16 07/20/16 21:59 05:59 13:59 Intake Total 500 Output Total 1175 Balance -675 Intake: Oral 500 Output: Urine 1175 Other: Urine Appearance Clear Urine Color Straw Vital Signs: Last Vital Signs Temp 36.4 C L 07/20/16 05:42 Pulse 69 07/20/16 05:42 Resp 15 07/20/16 05:42 BP 140/77 07/20/16 05:42 Pulse Ox 90 07/20/16 05:42 Oxygen Flow Rate 1 Oxygen Delivery Method Nasal Cannula - Constitutional General appearance: Present: average body habitus - Head Head exam: Present: normal inspection - ENT ENT exam: Present: mucous membranes moist - Respiratory Respiratory exam: Present: decreased breath sounds, clear - Cardiovascular Cardiovascular exam: Present: RRR. Absent: systolic murmur - GI/Abdominal GI/Abdominal exam: Present: soft. Absent: distended, tenderness - Extremities Exam Extremities exam: Absent: edema, tenderness - Back Exam Back exam: Absent: CVA tenderness (L), CVA tenderness (R) - Neurological Exam Neurological exam: Present: alert. Absent: oriented X3 (oriented to place and person only) - Psychiatric Psychiatric exam: Present: normal mood. Absent: agitated - Skin Skin exam: Present: dry, other (all of his finger and toenails were very long. the toenails were dystrophic, and the fingernails were not. I trimmed all of them today.). Absent: rash - Lab Labs: Laboratory Last Values WBC 6.1 X 10^3uL (3.9-10.7) 07/20/16 05:00 RBC 4.14 X 10^6uL (4.20-6.10) L 07/20/16 05:00 Hgb 12.5 g/dL (14.0-18.0) L 07/20/16 05:00 Hct 36.4 % (42.0-54.0) L 07/20/16 05:00 MCV 87.8 fL (80.0-100.0) 07/20/16 05:00 MCH 30.1 pg (29.0-35.0) 07/20/16 05:00 MCHC 34.3 g/dL (32.0-36.0) 07/20/16 05:00 RDW 17.0 % (11.5-14.5) H 07/20/16 05:00 Plt Count 193 X 10^3uL (130-440) 07/20/16 05:00 MPV 7.8 fL (7.4-10.4) 07/20/16 05:00 Neutrophils % 56.9 % (54.0-75.0) 07/20/16 05:00 Lymphocytes % 30.0 % (20.0-40.0) 07/20/16 05:00 Eosinophils % 4.2 % (0.0-6.0) 07/20/16 05:00 Basophils % 0.3 % (0.0-2.0) 07/20/16 05:00 Neutrophils # 3.5 X 10^3uL (2.6-6.7) 07/20/16 05:00 Lymphocytes # 1.8 X 10^3uL (0.8-3.8) 07/20/16 05:00 Monocytes 8.6 % (2.0-10.0) 07/20/16 05:00 Monocytes # 0.5 X 10^3uL (0.2-1.0) 07/20/16 05:00 Eosinophils # 0.3 X 10^3uL (0.0-0.4) 07/20/16 05:00 Basophils # 0.0 X 10^3uL (0.0-0.1) 07/20/16 05:00 Sodium 137 mmol/L (137-145) 07/20/16 05:00 Potassium 3.9 mmol/L (3.5-5.1) 07/20/16 05:00 Chloride 105 mmol/L (98-107) 07/20/16 05:00 Carbon Dioxide 25 mmol/L (22-30) 07/20/16 05:00 BUN 17 mg/dL (9-20) 07/20/16 05:00 Creatinine 0.8 mg/dL (0.7-1.3) 07/20/16 05:00 GFR Calculation Not Reportable 07/20/16 05:00 Glucose 91 mg/dL (70-100) 07/20/16 05:00 Calcium 8.5 mg/dL (8.4-10.2) 07/20/16 05:00
[2016-07-20] MEDS: predniSONE 5 MG TABLET PO SCH (10:11)
[2016-07-20] MEDS: ALLOPURINOL 100 MG TAB PO SCH (10:11)
[2016-07-20] MEDS: CEPHALEXIN MONOHYDRATE 250 MG CAPSULE PO SCH ×2 (10:12→21:00)
[2016-07-20] MEDS: SENNOSIDES/DOCUSATE SODIUM 1 TAB TABLET PO SCH ×2 (10:12→21:00)
[2016-07-20] MEDS: POLYETHYLENE GLYCOL 3350 17 GM POWD.PACK PO SCH (10:12)
[2016-07-20] MEDS: MULTIVITAMINS THERAPEUTIC 1 TABLET PO SCH (10:12)
[2016-07-21 05:40] VITALS: BP 135/90; PULSE 69; RESP 13; TEMP 97.8
[2016-07-21 05:49] LABS: BASOPHILS 0.2 % (0.0-2.0); EOSINOPHILS 3.9 % (0.0-6.0); EOSINOPHILS# 0.3 X 10^3uL (0.0-0.4); HEMATOCRIT 38.6 % (42.0-54.0); HEMOGLOBIN 12.8 g/dL (14.0-18.0); LYMPHOCYTES 29.3 % (20.0-40.0); LYMPHOCYTES# 2.1 X 10^3uL (0.8-3.8); MEAN CELL VOLUME 88.2 fL (80.0-100.0); MEAN CORPUS. HGB CONCENTRATION 33.1 g/dL (32.0-36.0); MEAN CORPUSCULAR HEMOGLOBIN 29.2 pg (29.0-35.0); MEAN PLATELET VOLUME 8.5 fL (7.4-10.4); MONOCYTES 8.2 % (2.0-10.0); MONOCYTES# 0.6 X 10^3uL (0.2-1.0); NEUTROPHILS 58.4 % (54.0-75.0); NEUTROPHILS# 4.1 X 10^3uL (2.6-6.7); PLATELET COUNT 209 X 10^3uL (130-440); RED BLOOD COUNT 4.38 X 10^6uL (4.20-6.10); RED CELL DISTRIBUTION WIDTH 16.8 % (11.5-14.5); WHITE BLOOD COUNT 7.1 X 10^3uL (3.9-10.7)
[2016-07-21 05:53] LABS: BLOOD UREA NITROGEN 20 mg/dL (9-20); CALCIUM 8.8 mg/dL (8.4-10.2); CHLORIDE 104 mmol/L (98-107); CREATININE 0.9 mg/dL (0.7-1.3); GLUCOSE 89 mg/dL (70-100); SODIUM 137 mmol/L (137-145)
[2016-07-21] MEDS: PANTOPRAZOLE 40 MG TABLET PO SCH (06:38)
[2016-07-21 08:20] VITALS: O2SAT 91
[2016-07-21] MEDS: MULTIVITAMINS THERAPEUTIC 1 TABLET PO SCH (08:45)
[2016-07-21] MEDS: ALLOPURINOL 100 MG TAB PO SCH (08:45)
[2016-07-21] MEDS: predniSONE 5 MG TABLET PO SCH (08:46)
[2016-07-21] MEDS: CEPHALEXIN MONOHYDRATE 250 MG CAPSULE PO SCH (08:46)
[2016-07-21] MEDS: SENNOSIDES/DOCUSATE SODIUM 1 TAB TABLET PO SCH (08:47)
[2016-07-21] MEDS: POLYETHYLENE GLYCOL 3350 17 GM POWD.PACK PO SCH (08:47)
--- NOTE | 2016-07-21 12:40 | DC SUMMARY: IM Note ---
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 He has made steady progress with physical and occupational therapy. His risk for falls has been lowered. He is able to ambulate with a walker. He will return home this afternoon to the care of his granddaughter and her . He will resume his usual medications. His UTI has resolved and he needs no further antibiotics. Home health care will help with the routine care of his suprapubic catheter, and home health aide will help with a regular showering. The patient will follow up with me next week. - Time Spent with Patient Total time spent providing and/or coordinating discharge services: Discharge - Patient/Caregiver Discharge Instructions Activity Level: walk with walker Diet: regular Additional Instructions: Routine S/P cath care Follow up: CRISTY ANNE MD [Primary Care Provider] - 07/26/16 2:40 pm Home Medications: Acetaminophen [Acetaminophen 8 Hour] 650 mg PO Q8H PRN #30 tablet.er PRN Reason: Pain, Mild predniSONE [Deltasone*] 5 mg PO DAILY #30 tablet Orders: Home Health Care Location: Determined By Patient Disposition: HOME, SELF-CARE Discharge Summary Data - Medication History Medication History: Home Medications Allopurinol [Zyloprim*] 150 mg PO DAILY 07/14/16 Multivitamins,Therapeutic [Thera Multivitamin*] 1 tab PO DAILY 07/14/16 Pantoprazole Sodium [Protonix] 40 mg PO DAILY 07/14/16 Acetaminophen [Acetaminophen 8 Hour] 650 mg PO Q8H PRN #30 tablet.er 07/21/16 predniSONE [Deltasone*] 5 mg PO DAILY #30 tablet 07/21/16 Inpatient Medications 07/17/16 06:30 Pantoprazole [Protonix] 40 mg PO BEFORE BREAKFAST 07/17/16 08:34 Acetaminophen [Tylenol] 650 mg PO Q6H PRN 07/17/16 09:00 Allopurinol [Zyloprim] 150 mg PO DAILY Multivitamins,Therapeutic [Thera] 1 tab PO DAILY predniSONE [Deltasone] 5 mg PO DAILY 07/17/16 21:00 Sennosides/Docusate Sodium [Mary-Colace] 1 tab PO BID 07/18/16 09:00 Polyethylene Glycol 3350 [miraLAX] 17 gm PO DAILY 07/19/16 21:00 Cephalexin Monohydrate [Keflex] 500 mg PO BID Procedures and tests throughout hospitalization: Completed Lab Orders 07/20/16 05:00 BMP [BASIC METABOLIC PANEL] [CHEM] AMDRAW CBC AUTO DIF, MDIF/RMOR IF IND [HEM] AMDRAW 07/21/16 05:15 BMP [BASIC METABOLIC PANEL] [CHEM] AMDRAW CBC AUTO DIF, MDIF/RMOR IF IND [HEM] AMDRAW Pending Orders 07/17/16 06:30 Pantoprazole [Protonix] 40 mg PO BEFORE BREAKFAST 07/17/16 08:28 Admit: Swing Bed Routine Activity: Ambulate with Assist TID Cleanse minor skin tears w/NS PRN Obtain weight Q7D Resuscitation Status Routine Sequential Compression Device IN BED OR CHAIR Titrate Oxygen TITRATE B/W 88-92% Vital Signs QSHIFT VS Wedge cushion for positioning PRN Fulfillment Representative Consult [CM] Routine Nutrition/Dietary Consult [CONS] Routine Physical Therapy Eval and Treatment [PT] Routine 07/17/16 08:30 Cover minor skin tears with DAILYPRN 07/17/16 08:32 VTE Prophylaxis Scoring/ Ordering Routine Occupation Therapy Eval and Treat [OT] Routine 07/17/16 08:34 Acetaminophen [Tylenol] 650 mg PO Q6H PRN 07/17/16 08:35 ADD ON LAB TEST [MULTI] Routine 07/17/16 09:00 Allopurinol [Zyloprim] 150 mg PO DAILY Multivitamins,Therapeutic [Thera] 1 tab PO DAILY predniSONE [Deltasone] 5 mg PO DAILY 07/17/16 21:00 Sennosides/Docusate Sodium [Mary-Colace] 1 tab PO BID 07/17/16 Lunch Regular [DIET] 07/18/16 08:41 Occupational Therapy Plan of Care [OT] Routine 07/18/16 09:00 Polyethylene Glycol 3350 [miraLAX] 17 gm PO DAILY 07/18/16 18:28 Mighty Shake Supplement BID 07/19/16 21:00 Cephalexin Monohydrate [Keflex] 500 mg PO BID 07/21/16 13:00 Discharge ONCE Labs on day of discharge: Labs from last 24 hours 07/21/16 05:15 WBC 7.1 RBC 4.38 Hgb 12.8 L Hct 38.6 L MCV 88.2 MCH 29.2 MCHC 33.1 RDW 16.8 H Plt Count 209 MPV 8.5 Neutrophils % 58.4 Lymphocytes % 29.3 Eosinophils % 3.9 Basophils % 0.2 Neutrophils # 4.1 Lymphocytes # 2.1 Monocytes 8.2 Monocytes # 0.6 Eosinophils # 0.3 Basophils # 0.0 Sodium 137 Potassium 4.0 Chloride 104 Carbon Dioxide 27 BUN 20 Creatinine 0.9 GFR Calculation Not Reportable Glucose 89 Calcium 8.8 IM: Discharge Physical Exam - I&O/Vital Signs I&O: Intake & Output 07/20/16 07/21/16 07/21/16 21:59 05:59 13:59 Intake Total 900 Output Total 300 200 Balance 600 -200 Intake: Oral 900 Output: Urine 300 200 Other: Urine Appearance Clear Clear Clear Urine Color Straw Yellow Yellow Stool Size Moderate Moderate Stool Characteristics Soft Soft Formed Formed Brown Brown Voiding Method Indwelling Catheter Indwelling Catheter Indwelling Catheter # Bowel Movements 1 Vital Signs: Last Vital Signs Temp 36.6 C 07/21/16 05:38 Pulse 69 07/21/16 05:38 Resp 13 07/21/16 09:00 BP 135/90 07/21/16 05:38 Pulse Ox 91 07/21/16 09:00 Oxygen Flow Rate 1 Oxygen Delivery Method Room Air - Constitutional General appearance: Present: average body habitus - Head Head exam: Present: normal inspection - ENT ENT exam: Present: mucous membranes moist - Respiratory Respiratory exam: Present: decreased breath sounds, rales (in R base) - Cardiovascular Cardiovascular exam: Present: RRR. Absent: systolic murmur - GI/Abdominal GI/Abdominal exam: Present: soft. Absent: distended, tenderness - Extremities Exam Extremities exam: Absent: edema, tenderness - Back Exam Back exam: Absent: CVA tenderness (L), CVA tenderness (R) - Neurological Exam Neurological exam: Present: alert. Absent: oriented X3 (oriented to place and person only) - Psychiatric Psychiatric exam: Present: normal mood. Absent: agitated - Skin Skin exam: Present: dry. Absent: rash - Allied Health Notes Allied health notes reviewed: case management, nursing, PT
== END 2016-07-21 13:00 | disposition home or self-care (01) | DRG 949 ==
LOC: IN 11:26
PROVIDERS: ADMIT Family Medicine; ATTEND Family Medicine
DX: T83.511D Infection and inflammatory reaction due to indwelling urethral catheter, subsequent encounter (principal); R53.1 Weakness; M62.59 Muscle wasting and atrophy, not elsewhere classified, multiple sites; R55 Syncope and collapse; R29.6 Repeated falls; N13.8 Other obstructive and reflux uropathy; I50.32 Chronic diastolic (congestive) heart failure; D63.8 Anemia in other chronic diseases classified elsewhere; R41.3 Other amnesia; E83.51 Hypocalcemia; I72.3 Aneurysm of iliac artery; R09.02 Hypoxemia; Z99.81 Dependence on supplemental oxygen; L85.0 Acquired ichthyosis; Z87.440 Personal history of urinary (tract) infections; E44.0 Moderate protein-calorie malnutrition; N18.2 Chronic kidney disease, stage 2 (mild); N40.1 Benign prostatic hyperplasia with lower urinary tract symptoms; I71.4 Abdominal aortic aneurysm, without rupture; M10.9 Gout, unspecified; M15.9 Polyosteoarthritis, unspecified; M35.3 Polymyalgia rheumatica; I25.10 Atherosclerotic heart disease of native coronary artery without angina pectoris; M51.36 Other intervertebral disc degeneration, lumbar region; Z79.899 Other long term (current) drug therapy
CPT/HCPCS: 36415; 80048; 85025; J7512

== ENCOUNTER 2016-09-29 11:25 | Emergency (ER) | payer MEDICARE, MEDICAID ==
[2016-09-29 12:07] LABS: URINE MUCUS NONE SEEN (Up to 25%); URINE RBC NONE SEEN (0-5/hpf); URINE SQUAMOUS EPITHELIAL CELL NONE SEEN (<= 15/hpf)
[2016-09-29 12:15] LABS: BASOPHIL# 0.1 X 10^3uL (0.0-0.1); BASOPHILS 0.9 % (0.0-2.0); EOSINOPHILS 3.4 % (0.0-6.0); EOSINOPHILS# 0.3 X 10^3uL (0.0-0.4); HEMATOCRIT 47.2 % (42.0-54.0); HEMOGLOBIN 16.1 g/dL (14.0-18.0); LYMPHOCYTES 22.6 % (20.0-40.0); MEAN CELL VOLUME 88.5 fL (80.0-100.0); MEAN CORPUS. HGB CONCENTRATION 34.2 g/dL (32.0-36.0); MEAN CORPUSCULAR HEMOGLOBIN 30.3 pg (29.0-35.0); MONOCYTES 5.9 % (2.0-10.0); MONOCYTES# 0.5 X 10^3uL (0.2-1.0); NEUTROPHILS 67.2 % (54.0-75.0); NEUTROPHILS# 5.8 X 10^3uL (2.6-6.7); PLATELET COUNT 244 X 10^3uL (130-440); RED BLOOD COUNT 5.33 X 10^6uL (4.20-6.10); RED CELL DISTRIBUTION WIDTH 14.4 % (11.5-14.5); WHITE BLOOD COUNT 8.7 X 10^3uL (3.9-10.7)
[2016-09-29 12:25] LABS: URINE APPEARANCE CLOUDY; URINE COLOR YELLOW; URINE LEUKOCYTE ESTERASE 25 WBC/uL (1+) (NEGATIVE); URINE NITRITE NEGATIVE (NEGATIVE); URINE SPECIFIC GRAVITY 1.025 (0.001-1.035)
[2016-09-29 12:26] LABS: BLOOD UREA NITROGEN 17 mg/dL (9-20); CALCIUM 9.4 mg/dL (8.4-10.2); CHLORIDE 105 mmol/L (98-107); GLUCOSE 135 mg/dL (70-100); POTASSIUM 3.8 mmol/L (3.5-5.1); SODIUM 141 mmol/L (137-145)
[2016-09-29 12:26] LABS: URINE BILIRUBIN NEGATIVE (NEGATIVE); URINE BLOOD 250 Ery/uL (3+) (NEGATIVE); URINE GLUCOSE NORMAL (NEGATIVE); URINE KETONE NEGATIVE (NEGATIVE); URINE PROTEIN 300mg/dL (3+) (NEG - TRACE); URINE UROBILINOGEN 0.2mg/dL (Normal) (NEG-1mg/dL)
[2016-09-29 12:27] LABS: URINE AMORPHOUS SEDIMENT UP TO 50%/lpf (Up to 25%); URINE BACTERIA >50 ORGANISMS/hpf (<10/hpf); URINE TRANSITIONAL EPI CELL NONE SEEN (<=5/hpf)
[2016-09-29 12:28] LABS: URINE SPERM NONE SEEN
[2016-09-29 12:46] LABS: URINE TRICHOMONAS NONE SEEN (None Seen)
[2016-09-29] MEDS ORDERED: LEVOFLOXACIN/D5W 100 ML IV ONE (13:08)
--- NOTE | 2016-09-29 14:15 | ER PHYSICIAN DOCUMENTATION ---
Physician Documentation [facility] Name:Abhishek Jimenez Age:81 yrs Sex:Male :1935 Arrival Date:09/29/2016 Time:11:25 Bed4 Private MD:Barrie Sandoval ED, [place] Disposition: 09/29 12:56 Critical Care: not applicable. sc Disposition: 09/29/16 12:57 Discharged to Home/Self Care. Impression: Bladder Infection (UTI). - Condition is Fair. - Discharge Instructions: BLADDER INFECTION, Male (Adult). - Prescriptions for Levaquin 500 mg Oral Tablet - take 1 tablet by ORAL route once daily for 7 days; 7 tablet. - Medical Reconciliation form form. - Follow up: Barrie Sandoval MD; When: 2 - 3 days; Reason: Recheck today's complaints. - Problem is an ongoing problem. - Symptoms have improved. HPI: 12:53 This 81 yrs old Male presents to ER via EMS with complaints of Altered Mental sc Status. 12:53 The patient presents with decreased responsiveness. Onset: The symptom(s)/episode sc began/occurred today. Possible causes: sepsis, the patient has an indwelling Lopez catheter. Associated signs and symptoms: The patient has no apparent associated signs or symptoms. Current symptoms: In the emergency department the patient's symptoms have resolved, the patient is alert and fully oriented, has normal speech, has normal responsiveness. Patient's baseline: Neuro: alert but confused. The patient has experienced a previous episode. Historical: - Allergies: No known drug Allergies; - Home Meds: 1. 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 - Ebola Screening: : Patient negative for fever greater than or equal to 101.5 degrees Fahrenheit, and additional compatible Ebola Virus Disease symptoms. Patient denies exposure to infectious person. Patient denies travel to an Ebola-affected area in the 21 days before illness onset. No symptoms or risks identified at this time. . - Immunization history: Flu Vaccine unknown. - Social history: Smoking status: unknown if patient ever smoked tobacco. - History obtained from: granddaughter. ROS: 12:54 Eyes: Negative for injury, pain, redness, and discharge. sc ENT: Negative for injury, pain, and discharge. Neck: Negative for injury, pain, and swelling. Cardiovascular: Negative for chest pain, palpitations, and edema. Respiratory: Negative for shortness of breath, cough, wheezing, and pleuritic chest pain. Abdomen/GI: Negative for abdominal pain, nausea, vomiting, diarrhea, and constipation. 12:54 Back: Negative for injury and pain. sc 12:54 Constitutional: Negative for body aches, chills, fatigue, fever, malaise, poor PO intake. 12:54 Neuro: Positive for no syncope today, eyes open, holding himself upright but not answering questions or following commands for 15 minutes est.. Exam: Head/Face: Normocephalic, atraumatic. Eyes: Pupils equal round and reactive to light, extra-ocular motions intact. Lids and lashes normal. Conjunctiva and sclera are non-icteric and not injected. Cornea within normal limits. Periorbital areas with no swelling, redness, or edema. Neck: Trachea midline, no thyromegaly or masses palpated, and no cervical lymphadenopathy. Supple, full range of motion without nuchal rigidity, or vertebral point tenderness. No meningismus. Chest/axilla: Normal chest wall appearance and motion. Nontender with no deformity. No lesions are appreciated. Cardiovascular: Regular rate and rhythm with a normal S1 and S2. No gallops, murmurs, or rubs. Normal PMI, no JVD. No pulse deficits. Respiratory: Lungs have equal breath sounds bilaterally, clear to auscultation and percussion. No rales, rhonchi or wheezes noted. No increased work of breathing, no retractions or nasal flaring. Abdomen/GI: Soft, non-tender, with normal bowel sounds. No distension or tympany. No guarding or rebound. No evidence of tenderness throughout. Back: No spinal tenderness. No costovertebral tenderness. Full range of motion. 12:55 Skin: Warm, dry with normal turgor. Normal color with no rashes, no lesions, and no sc evidence of cellulitis. 12:55 Constitutional: The patient appears alert, awake, frail, lethargic. 12:55 Neuro: Orientation: is normal, Memory: unable to test, the patient has a history of dementia, Cranial nerves: CN II- XII are normal as tested, Cerebellar function: is grossly normal based on the patient's age. Vital Signs: 11:49 BP 137 / 82; Pulse 96; Resp 14; Temp 97.6(TE); Pulse Ox 92% on R/A; Pain 0/10; tg 13:32 BP 98 / 65; Pulse 92; Resp 18; Pulse Ox 92% on R/A; Pain 0/10; tg 13:59 BP 107 / 83; Pulse 97; Resp 20; Pulse Ox 92% on R/A; tg MDM: 11:28 Patient medically screened. ar 11:50 EKG attached [facility] 12:56 Differential Diagnosis: sepsis, TIA, UTI, volume depletion. Data reviewed: vital signs, ar nurses notes, old medical records, lab test result(s), EKG, and as a result, I will continue to observe the patient, administer antibiotics. Counseling: I had a detailed discussion with the patient and/or guardian regarding: the historical points, exam findings, and any diagnostic results supporting the discharge/admit diagnosis, lab results, the need for outpatient follow up, with the patient's primary care provider. 09/29 12:23 Order name: CBC AUTO DIF, MDIF/RMOR IF IND; Complete Time: 12:36 EDKS 09/29 12:23 Interpretation: Normal. ar 09/29 12:28 Order name: BASIC METABOLIC PANEL; Complete Time: 12:36 EDKS 09/29 12:36 Interpretation: Normal. ar 09/29 12:46 Order name: UA W/ MICRO -CULTURE IF IND; Complete Time: 12:51 EDKS 09/29 12:51 Interpretation: Abnormal: bacteria, cx ordered. ar 09/30 06:29 Order name: URINE CULTURE [facility] 10/01 08:48 Order name: NEGATIVE SENSITIVITY PANEL [facility] 09/29 11:52 Order name: Iv Saline Lock; Complete Time: 11:53 ar 09/29 12:05 Order name: Cardiac Monitoring - Continuous; Complete Time: 12:06 09/29 12:05 Order name: 12-lead EKG; Complete Time: 12:06 09/29 12:05 Order name: Pulse Ox Continuous; Complete Time: 12:06 tg Dispensed Medications: 13:01 Drug: Levaquin 500 mg; Route: IVPB; Infused Over: 1 hrs; Site: left hand; Delivery: sc1 Pump; 13:59 Follow up: IV Status: Completed infusion; IV Intake: 100ml tg Signatures: Elan Baird RN RN tg Kimberley Jeter RN RN sc1 Jace Bradshaw MD MD ar
--- NOTE | 2016-09-29 14:15 | ER NURSING DOCUMENTATION ---
Nurse's Notes [facility] Name:Abhishek Jimenez Age:81 yrs Sex:Male :1935 Arrival Date:09/29/2016 Time:11:25 Bed4 Private MD:Barrie Sandoval Diagnosis:Bladder Infection (UTI) Presentation: 09/29 11:32 Acuity: JAYDEN 3 sc1 11:56 Presenting complaint: EMS states: Pt had a syncopal or near-syncopal episode while tg sitting down, getting dressed with the assistance of home health after a bath. No Chest pain, SOB, headache, or other complaints at time of arrival in ED. Pt's grand-daughter, who lives with pt (Sachin Latham), reports that pt's urine is usually clear, but today noticed it was cloudy and had a foul odor. Transition of care: patient was received from another setting of care (home health care). 11:56 Method Of Arrival: EMS: 410 tg Triage Assessment: 11:52 General: Appears in no apparent distress, slender, Behavior is cooperative, quiet. tg Pain: Denies pain. Neuro: Level of Consciousness is awake, confused, Oriented to person, event, Speech is normal. Cardiovascular: Capillary refill < 3 seconds Rhythm is sinus rhythm. Respiratory: Respiratory effort is even, unlabored. Historical: - Allergies: No known drug Allergies; - Home Meds: 1. 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 - Ebola Screening: : Patient negative for fever greater than or equal to 101.5 degrees Fahrenheit, and additional compatible Ebola Virus Disease symptoms. Patient denies exposure to infectious person. Patient denies travel to an Ebola-affected area in the 21 days before illness onset. No symptoms or risks identified at this time. . - Immunization history: Flu Vaccine unknown. - Social history: Smoking status: unknown if patient ever smoked tobacco. - History obtained from: granddaughter. Screenin:52 Infectious Disease Risk Unable to Obtain. Abuse screen: Denies threats or abuse. Denies tg injuries from another. Nutritional screening: No deficits noted. Vital Signs: 11:49 BP 137 / 82; Pulse 96; Resp 14; Temp 97.6(TE); Pulse Ox 92% on R/A; Pain 0/10; tg 13:32 BP 98 / 65; Pulse 92; Resp 18; Pulse Ox 92% on R/A; Pain 0/10; tg 13:59 BP 107 / 83; Pulse 97; Resp 20; Pulse Ox 92% on R/A; tg ED Course: 11:26 Patient arrived in ED. ama 11:26 Barrie Sandoval MD is Private Physician. ama 11:28 Jace Bradshaw MD is Attending Physician. nh 11:32 Triage completed. nh1 11:48 Inserted peripheral IV: 20 gauge in left hand. nh1 11:49 Elan Baird RN is Primary Nurse. tg 11:50 EKG attached nh1 12:00 Valuables Remains with patient. Placed in gown. Bed in low position. Side rails up X 1. tg Adult w/ patient. book cleaner on. Pulse ox on. Verbal reassurance given. Warm blanket given. Pillow given. Family accompanied patient. 12:56 Barrie Sandoval MD is Referral Physician. sc Administered Medications: 13:01 Drug: Levaquin 500 mg; Route: IVPB; Infused Over: 1 hrs; Site: left hand; Delivery: sc1 Pump; 13:59 Follow up: IV Status: Completed infusion; IV Intake: 100ml tg Intake: 13:59 IV: 100ml; Total: 100ml. tg Outcome: 12:57 Discharge ordered by . nh 13:59 Discharged to home via wheelchair, with family. tg 13:59 Condition: improved 13:59 Discharge Assessment: Patient awake, obeys commands. 13:59 Discharge instructions given to patient, family, Instructed on discharge instructions, follow up and referral plans. medication usage, Prescriptions given X 1. 13:59 IV D/Noe 14:14 Patient left the ED. tg 09/30 13:56 Discharge F/U Call: Overall Care on a scale of 1-10 with 10 being the best care, you tg rate our care as: Other comments: Spoke with Adult grandson, pt is doing much better today Signatures: Elan Baird RN RN Kimberley Jeter RN RN [facility] Jace Bradshaw MD MD nh Rafiq Wells, Reg Reg ama
== END 2016-09-29 14:15 | disposition home or self-care (01) ==
LOC: ER 11:25
DX: T83.518A Infection and inflammatory reaction due to other urinary catheter, initial encounter (principal); N39.0 Urinary tract infection, site not specified; B96.89 Other specified bacterial agents as the cause of diseases classified elsewhere; R41.82 Altered mental status, unspecified; R00.0 Tachycardia, unspecified; I48.91 Unspecified atrial fibrillation; N18.9 Chronic kidney disease, unspecified; Z79.899 Other long term (current) drug therapy; Z74.3 Need for continuous supervision
CPT/HCPCS: 36415; 80048; 81001; 85025; 87077; 87086; 87186; 93005; 93010; 96365; 99284; 99285; A0425; A0429; J1956